=== PATIENT | male | born 1960 | race Caucasian/White ===

== ENCOUNTER 2020-10-02 23:41 | Observation (INO) ==
[2020-10-03 03:30] LABS: Basophils # 0.1 K/mcL (0.0-0.2); Basophils % 0.6 %; Eosinophils # 0.1 K/mcL (0.0-0.6); Eosinophils % 0.8 %; Hematocrit 36.9 % (37.5-50.1); Hemoglobin 11.8 g/dL (12.9-16.9); Immature Granulocytes % 0.4 % (0-4); Lymphocytes # 7.7 K/mcL (0.6-4.6); Mean Corpuscular Hemoglobin 30.3 pg (28.0-33.3); Mean Corpuscular Volume 94.6 fL (83.0-100.0); Mean Platelet Volume 10.5 fL (9.4-12.4); Monocytes # 0.6 K/mcL (0.0-1.3); Monocytes % 4.9 %; Neutrophils # 3.7 K/mcL (1.6-8.9); Platelet Count 164 K/mcL (140-400); Red Cell Distribution Width 13.6 % (11.5-14.5); Segmented Neutrophils % 30.3 %; White Blood Count 12.2 K/mcL (4.3-11.1)
[2020-10-03 03:49] LABS: BUN/Creatinine Ratio 23 (6-26); Blood Urea Nitrogen 58 mg/dL (6-20); Calcium 9.2 mg/dL (8.6-10.3); Carbon Dioxide 26 mEq/L (23-29); Chloride 106 mEq/L (98-107); Ethanol < 10 mg/dL (Less than 10); Glucose 234 mg/dL (70-105); Osmolality,Calculated 312 (280-300); Sodium 139 mEq/L (136-145); eGFR For African Americans 32 (> 60); eGFR For Non-African Americans 27 (> 60)
[2020-10-03 04:04] LABS: Platelet Estimate Normal (Normal); Reactive Lymphocytes Present (Not Present)
[2020-10-03 04:05] LABS: Anisocytosis 1+ (Not Present)
[2020-10-03 05:17] LABS: Bilirubin,Urine Negative (Negative); Blood,Urine Negative (Negative); Clarity,Urine Clear (Clear); Color,Urine Colorless (Yellow); Glucose,Urine (UA) 500 mg/dL (Normal); Ketones,Urine Negative (Negative); Leukocyte Esterase,Urine Negative (Negative); Nitrite,Urine Negative (Negative); PH,Urine 6.5 pH Units (5.0-8.0); Protein,Urine 200 mg/dL (Neg-Trace); RBC,Urine 0-3 per hpf (0-3); Specific Gravity,Urine 1.014 (1.010-1.025); Squamous Epithelial Cell,Urine Few per hpf (None-Few); Urobilinogen,Urine Normal (Normal); WBC,Urine 0-3 per hpf (0-3)
[2020-10-03 05:28] LABS: Amphetamine Screen,Urine Positive ng/mL (Cutoff=1000); Barbiturate Screen,Urine Negative ng/mL (Cutoff=200); Benzodiazepines Screen,Urine Negative ng/mL (Cutoff=200); Cannabinoid Screen,Urine Negative ng/mL (Cutoff = 50); Cocaine Screen,Urine Negative ng/mL (Cutoff= 300); Opiate Screen,Urine Negative ng/mL (Cutoff=300); Phencyclidine Screen,Urine Negative ng/mL (Cutoff=25)
[2020-10-03] MEDS ORDERED: 0.9 % Sodium Chloride 1,000 ML IVC ONE (09:40)
[2020-10-03] MEDS ORDERED: *HR* HYDROcodone/Acet 5/325 mg TABLET PO PRN (10:19)
[2020-10-03] MEDS ORDERED: Naloxone 0.4 MG/ML INJ IVP PRN (10:19)
[2020-10-03] MEDS ORDERED: Ondansetron 4 MG/2 ML VIAL IVP PRN (10:19)
[2020-10-03] MEDS ORDERED: Acetaminophen 325 MG TABLET PO PRN (10:19)
[2020-10-03] MEDS ORDERED: D5% in Water 1,000 ML IVC PRN (10:20)
[2020-10-03] MEDS ORDERED: *HR* Dextrose 50 % in Water (Vial) 50 ML VIAL IVP PRN (10:20)
[2020-10-03] MEDS ORDERED: Dextrose Gel 15 GM/37.5 ML TUBE PO PRN ×2 (10:20)
[2020-10-03] MEDS ORDERED: *HR* OxyCODONE/APAP 10/325 TABLET PO PRN (11:12)
[2020-10-03] MEDS: Insulin LISPRO 300 UNITS/3 ML VIAL SUBQ SCH ×2 (11:25→16:16)
[2020-10-03] MEDS: Ringers Solution, Lactated 1,000 ML IVC SCH (12:07)
[2020-10-03] MEDS: Nicotine 21 MG PATCH.TD24 TD SCH (13:07)
[2020-10-03] MEDS: *HR* OxyCODONE/APAP 10/325 TABLET PO PRN (20:00)
[2020-10-03] MEDS ORDERED: Insulin DETEMIR 100 UNIT/ML X5UNITS SUBQ SCH (21:00)
[2020-10-04] MEDS: Ringers Solution, Lactated 1,000 ML IVC SCH (01:11)
[2020-10-04] MEDS: *HR* OxyCODONE/APAP 10/325 TABLET PO PRN ×2 (01:49→09:12)
[2020-10-04] MEDS: Insulin LISPRO 300 UNITS/3 ML VIAL SUBQ SCH ×2 (07:25→11:57)
[2020-10-04 08:20] LABS: Hematocrit 36.6 % (37.5-50.1); Hemoglobin 11.6 g/dL (12.9-16.9); Mean Corpuscular HGB Conc 31.7 g/dL (31.6-35.5); Mean Corpuscular Hemoglobin 30.9 pg (28.0-33.3); Mean Corpuscular Volume 97.3 fL (83.0-100.0); Mean Platelet Volume 10.6 fL (9.4-12.4); Platelet Count 167 K/mcL (140-400); Red Blood Count 3.76 M/mcL (4.19-5.50); Red Cell Distribution Width 13.4 % (11.5-14.5); White Blood Count 12.6 K/mcL (4.3-11.1)
[2020-10-04 08:32] LABS: Calcium 8.9 mg/dL (8.6-10.3); Potassium 4.3 mEq/L (3.5-5.1); Uric Acid 8.6 mg/dL (2.3-7.6)
[2020-10-04] MEDS: Nicotine 21 MG PATCH.TD24 TD SCH (08:50)
[2020-10-04 09:02] LABS: Hepatitis B Surface Antigen Nonreactive (Nonreactive)
[2020-10-04 09:06] LABS: Basophils # 0.3 K/mcL (0.0-0.2); Eosinophils # 0.3 K/mcL (0.0-0.6); Lymphocytes # 9.1 K/mcL (0.6-4.6); Monocytes # 0.3 K/mcL (0.0-1.3); Neutrophils # 2.8 K/mcL (1.6-8.9); Platelet Estimate Normal (Normal); Reactive Lymphocytes Present (Not Present)
[2020-10-04 09:31] LABS: Hepatitis C Virus Antibody Nonreactive (Nonreactive)
[2020-10-04 09:32] LABS: Hepatitis B Core IgM Nonreactive (Nonreactive)
[2020-10-04 09:33] LABS: Hepatitis A Antibody IgM Nonreactive (Nonreactive)
[2020-10-04 10:48] VITALS: BP 117/78
[2020-10-04 12:39] LABS: Protein/Creatinine Ratio,Urine 5.23 mg/mg (0.00-0.20); Sodium, Urine 94.2 mEq/L
[2020-10-04] MEDS ORDERED: Famotidine 20 MG TABLET PO SCH (12:45)
[2020-10-04] MEDS ORDERED: Aspirin Enteric Coated 81 MG Tablet PO SCH (12:45)
[2020-10-04] MEDS ORDERED: Insulin DETEMIR 100 UNIT/ML X5UNITS SUBQ SCH (12:45)
[2020-10-04] MEDS ORDERED: hydroCHLOROthiazide 25 MG TABLET PO SCH (12:45)
[2020-10-04] MEDS ORDERED: NIFEdipine XL (24 HR) 60 MG TAB.ER.24 PO SCH (12:45)
[2020-10-04] MEDS ORDERED: Furosemide 20 MG TABLET PO SCH (12:45)
[2020-10-04] MEDS ORDERED: carvediloL 6.25 MG TABLET PO SCH (12:45)
== END 2020-10-04 14:54 | disposition home or self-care (01) ==
LOC: 3BNU 23:41 → EMEROOARM 23:41 → SUATTDRO 10-03 10:12 → 3BNU 10-03 10:42
PROVIDERS: ADMIT Internal Medicine; ATTEND Internal Medicine

== ENCOUNTER 2020-11-01 01:10 | Observation (INO) ==
[2020-11-01] MEDS ORDERED: Aspirin 81 MG TAB.CHEW PO ONE (01:49)
[2020-11-01] MEDS ORDERED: Morphine Sulfate 2 MG/ML SYRINGE IVP STA (01:57)
[2020-11-01 02:11] LABS: Basophils # 0.1 K/mcL (0.0-0.2); Basophils % 0.6 %; Eosinophils # 0.1 K/mcL (0.0-0.6); Eosinophils % 0.5 %; Hematocrit 41.4 % (37.5-50.1); Hemoglobin 13.4 g/dL (12.9-16.9); Immature Granulocytes % 0.3 % (0-4); Lymphocytes % 45.5 %; Mean Corpuscular HGB Conc 32.4 g/dL (31.6-35.5); Mean Corpuscular Volume 92.8 fL (83.0-100.0); Mean Platelet Volume 10.4 fL (9.4-12.4); Monocytes # 0.6 K/mcL (0.0-1.3); Monocytes % 5.4 %; Neutrophils # 5.5 K/mcL (1.6-8.9); Platelet Count 173 K/mcL (140-400); Red Blood Count 4.46 M/mcL (4.19-5.50); Red Cell Distribution Width 13.5 % (11.5-14.5); Segmented Neutrophils % 47.7 %; White Blood Count 11.5 K/mcL (4.3-11.1)
[2020-11-01 02:13] LABS: Lymphocytes # 5.2 K/mcL (0.6-4.6)
[2020-11-01 02:19] LABS: INR 1.1; Prothrombin Time 12.2 Seconds (9.4-12.1)
[2020-11-01 02:22] LABS: Activated Partial Thrombo Time 28.3 Seconds (26.0-36.0)
[2020-11-01] MEDS ORDERED: *HR* Labetalol 20 MG/4 ML SYRINGE IVP ONE (02:36)
[2020-11-01 02:37] LABS: Platelet Estimate Normal (Normal); Poikilocytosis 1+ (Not Present); Reactive Lymphocytes Present (Not Present)
[2020-11-01] MEDS ORDERED: Isovue-370 500 ML BOTTLE IVP ONE (02:37)
[2020-11-01] MEDS ORDERED: Furosemide 40 MG/4 ML VIAL IVP ONE (03:00)
[2020-11-01 03:13] LABS: Bilirubin,Direct 0.1 mg/dL (0.0-0.2); Potassium 4.6 mEq/L (3.5-5.1); Troponin I 0.17 ng/mL (< 0.04)
[2020-11-01] MEDS ORDERED: *HR* Heparin 5,000 UNIT/ML VIAL IVP ONE (03:13)
[2020-11-01] MEDS ORDERED: *HR* Heparin 5,000 UNIT/ML VIAL IVP PRN (03:13)
[2020-11-01 03:14] LABS: Albumin 4.1 g/dL (3.5-5.7); Albumin/Globulin Ratio 1.3 (1.1-2.2); Bilirubin,Indirect 0.5 mg/dL (0.0-1.0); Bilirubin,Total 0.6 mg/dL (0.3-1.0); Calcium 9.2 mg/dL (8.6-10.3); Globulin 3.2 g/dL (2.4-3.5); Total Protein 7.3 g/dL (6.4-8.9)
[2020-11-01] MEDS ORDERED: *HR* HYDROmorphone (PF) 1 MG/ML SYRINGE IVP ONE (03:33)
[2020-11-01 04:33] LABS: Bilirubin,Urine Negative (Negative); Blood,Urine Trace (Negative); Clarity,Urine Clear (Clear); Color,Urine Light-Yellow (Yellow); Glucose,Urine (UA) >=1000 mg/dL (Normal); Ketones,Urine Negative (Negative); Leukocyte Esterase,Urine Negative (Negative); Mucus,Urine Few per lpf (None-Few); Nitrite,Urine Negative (Negative); PH,Urine 6.5 pH Units (5.0-8.0); Protein,Urine >=300 mg/dL (Neg-Trace); Specific Gravity,Urine 1.014 (1.010-1.025); Squamous Epithelial Cell,Urine Few per hpf (None-Few); Urobilinogen,Urine Normal (Normal)
[2020-11-01] MEDS: Heparin 25,000UNIT/250ML 1/2NS 25,000 UNIT/250 ML IV.SOLN IVC SCH (04:33)
[2020-11-01] MEDS ORDERED: Naloxone 0.4 MG/ML INJ IVP PRN (07:40)
[2020-11-01] MEDS ORDERED: Morphine Sulfate 2 MG/ML SYRINGE IVP ONE (08:46)
[2020-11-01 10:32] LABS: Estimated Average Glucose 206 mg/dl; Hemoglobin A1C 8.8 %
[2020-11-01] MEDS: Nicotine 21 MG PATCH.TD24 TD SCH (10:59)
[2020-11-01] MEDS ORDERED: amLODIPine 5 MG TABLET PO SCH (12:00)
[2020-11-01] MEDS ORDERED: Perflutren Lipid Microsphere 1.3 ML in 0.9 % Sodium Chloride 8.7 ML IVP PRN (12:18)
[2020-11-01] MEDS: Morphine Sulfate 2 MG/ML SYRINGE IVP PRN ×3 (12:41→22:29)
[2020-11-01] MEDS: NIFEdipine XL (24 HR) 60 MG TAB.ER.24 PO SCH ×2 (12:42→20:54)
[2020-11-01] MEDS: Isosorbide MONOnitrate (24 HR) 30 MG TAB.ER.24H PO SCH (12:42)
[2020-11-01] MEDS: Ampicillin/Sulbactam 1,500 MG in 0.9 % Sodium Chloride Mini Bag 100 ML IVPB SCH (12:46)
[2020-11-01] MEDS: carvediloL 6.25 MG TABLET PO SCH ×2 (12:46→17:10)
[2020-11-01] MEDS ORDERED: D5% in Water 1,000 ML IVC PRN (15:16)
[2020-11-01] MEDS ORDERED: *HR* Dextrose 50 % in Water (Vial) 50 ML VIAL IVP PRN (15:16)
[2020-11-01] MEDS ORDERED: Dextrose Gel 15 GM/37.5 ML TUBE PO PRN ×2 (15:16)
[2020-11-01] MEDS ORDERED: carvediloL 6.25 MG TABLET PO SCH (17:00)
[2020-11-01] MEDS: Insulin LISPRO 300 UNITS/3 ML VIAL SUBQ SCH (17:11)
[2020-11-01] MEDS: *HR* Heparin 5,000 UNIT/ML VIAL IVP PRN (18:59)
[2020-11-01] MEDS: Sucralfate 1 GM TABLET PO SCH (20:54)
[2020-11-01] MEDS: Colchicine 0.6 MG TABLET PO SCH (20:55)
[2020-11-01] MEDS ORDERED: Insulin LISPRO 300 UNITS/3 ML VIAL SUBQ SCH (21:00)
[2020-11-02] MEDS: Ampicillin/Sulbactam 1,500 MG in 0.9 % Sodium Chloride Mini Bag 100 ML IVPB SCH ×2 (00:27→11:34)
[2020-11-02 01:32] LABS: Basophils # 0.1 K/mcL (0.0-0.2); Basophils % 0.5 %; Eosinophils # 0.1 K/mcL (0.0-0.6); Eosinophils % 0.7 %; Hematocrit 37.4 % (37.5-50.1); Hemoglobin 11.9 g/dL (12.9-16.9); Immature Granulocytes % 0.5 % (0-4); Lymphocytes # 4.2 K/mcL (0.6-4.6); Lymphocytes % 39.7 %; Mean Corpuscular HGB Conc 31.8 g/dL (31.6-35.5); Mean Corpuscular Hemoglobin 29.4 pg (28.0-33.3); Mean Corpuscular Volume 92.3 fL (83.0-100.0); Mean Platelet Volume 10.2 fL (9.4-12.4); Monocytes # 0.4 K/mcL (0.0-1.3); Monocytes % 3.8 %; Neutrophils # 5.8 K/mcL (1.6-8.9); Platelet Count 128 K/mcL (140-400); Red Blood Count 4.05 M/mcL (4.19-5.50); Red Cell Distribution Width 13.2 % (11.5-14.5); Segmented Neutrophils % 54.8 %; White Blood Count 10.6 K/mcL (4.3-11.1)
[2020-11-02 01:52] LABS: Calcium 8.5 mg/dL (8.6-10.3); Potassium 4.3 mEq/L (3.5-5.1)
[2020-11-02 01:54] LABS: Platelet Estimate Normal (Normal)
[2020-11-02] MEDS: Morphine Sulfate 2 MG/ML SYRINGE IVP PRN (03:29)
[2020-11-02] MEDS ORDERED: Ondansetron 4 MG/2 ML VIAL IVP ONE (06:33)
[2020-11-02] MEDS ORDERED: Tiotropium 10 INH DOSE IH ONE (07:16)
[2020-11-02] MEDS: Insulin LISPRO 300 UNITS/3 ML VIAL SUBQ SCH ×2 (07:43→11:32)
[2020-11-02] MEDS ORDERED: Furosemide 20 MG TABLET PO SCH (09:00)
[2020-11-02] MEDS ORDERED: Isosorbide MONOnitrate (24 HR) 30 MG TAB.ER.24H PO SCH (09:00)
[2020-11-02] MEDS ORDERED: Aspirin Enteric Coated 81 MG Tablet PO SCH (09:00)
[2020-11-02] MEDS ORDERED: Pantoprazole 40 MG VIAL IVP SCH (09:00)
[2020-11-02] MEDS ORDERED: Morphine Sulfate 2 MG/ML SYRINGE IVP ONE (09:23)
[2020-11-02] MEDS: Isosorbide MONOnitrate (24 HR) 30 MG TAB.ER.24H PO SCH (09:32)
[2020-11-02] MEDS: carvediloL 6.25 MG TABLET PO SCH ×2 (09:32→17:44)
[2020-11-02] MEDS: Nicotine 21 MG PATCH.TD24 TD SCH (09:32)
[2020-11-02] MEDS: NIFEdipine XL (24 HR) 60 MG TAB.ER.24 PO SCH (09:32)
[2020-11-02] MEDS: Sucralfate 1 GM TABLET PO SCH ×3 (09:32→17:44)
[2020-11-02] MEDS: Colchicine 0.6 MG TABLET PO SCH (09:33)
[2020-11-02] MEDS ORDERED: Tiotropium 10 INH DOSE IH SCH (10:00)
[2020-11-02] MEDS: Heparin 25,000UNIT/250ML 1/2NS 25,000 UNIT/250 ML IV.SOLN IVC SCH (10:54)
[2020-11-02] MEDS: *HR* Heparin 5,000 UNIT/ML VIAL IVP PRN (12:54)
[2020-11-02] MEDS ORDERED: Ranolazine 500 MG TAB.ER.12H PO SCH (14:45)
[2020-11-02 16:22] VITALS: BP 110/67
[2020-11-02] MEDS ORDERED: Famotidine 20 MG TABLET PO SCH (17:00)
== END 2020-11-02 18:40 | disposition home or self-care (01) ==
LOC: EMEROOARM 01:10 → 2NNU 01:10 → SUATTDRO 05:55 → 2NNU 06:42
PROVIDERS: ADMIT Family Medicine; ATTEND Family Medicine

== ENCOUNTER 2020-11-03 01:49 | Observation (INO) ==
[2020-11-03] MEDS ORDERED: Aspirin 325 MG TABLET PO ONE (02:06)
[2020-11-03] MEDS ORDERED: *HR* FentaNYL (PF) 100 MCG/2 ML VIAL IVP ONE ×2 (02:07→03:38)
[2020-11-03 03:07] LABS: Basophils # 0.1 K/mcL (0.0-0.2); Basophils % 0.8 %; Eosinophils # 0.1 K/mcL (0.0-0.6); Eosinophils % 0.8 %; Hematocrit 35.5 % (37.5-50.1); Immature Granulocytes % 0.4 % (0-4); Lymphocytes # 5.1 K/mcL (0.6-4.6); Lymphocytes % 47.6 %; Mean Corpuscular Hemoglobin 29.3 pg (28.0-33.3); Mean Corpuscular Volume 94.4 fL (83.0-100.0); Mean Platelet Volume 10.6 fL (9.4-12.4); Monocytes # 0.5 K/mcL (0.0-1.3); Monocytes % 4.6 %; Neutrophils # 4.9 K/mcL (1.6-8.9); Platelet Count 144 K/mcL (140-400); Red Blood Count 3.76 M/mcL (4.19-5.50); Red Cell Distribution Width 13.5 % (11.5-14.5); Segmented Neutrophils % 45.8 %; White Blood Count 10.6 K/mcL (4.3-11.1)
[2020-11-03 03:14] LABS: Prothrombin Time 11.9 Seconds (9.4-12.1)
[2020-11-03 03:30] LABS: Platelet Estimate Normal (Normal); Reactive Lymphocytes Present (Not Present)
[2020-11-03 03:42] LABS: Calcium 8.5 mg/dL (8.6-10.3); Potassium 4.6 mEq/L (3.5-5.1); Troponin I 0.07 ng/mL (< 0.04)
[2020-11-03] MEDS ORDERED: Nitroglycerin 0.4 MG TAB.SUBL SL PRN (05:55)
[2020-11-03] MEDS ORDERED: Naloxone 0.4 MG/ML INJ IVP PRN (06:04)
[2020-11-03] MEDS ORDERED: Ondansetron 4 MG/2 ML VIAL IVP PRN (06:04)
[2020-11-03] MEDS: Famotidine 20 MG TABLET PO SCH (07:33)
[2020-11-03] MEDS: Morphine Sulfate 2 MG/ML SYRINGE IVP PRN ×3 (07:33→15:46)
[2020-11-03] MEDS: NIFEdipine XL (24 HR) 60 MG TAB.ER.24 PO SCH (21:03)
[2020-11-03] MEDS: Ranolazine 500 MG TAB.ER.12H PO SCH (21:03)
[2020-11-04] MEDS ORDERED: Isosorbide MONOnitrate (24 HR) 30 MG TAB.ER.24H PO SCH (09:00)
[2020-11-04] MEDS ORDERED: Aspirin Enteric Coated 81 MG Tablet PO SCH (09:00)
[2020-11-04] MEDS ORDERED: Furosemide 20 MG TABLET PO SCH (09:00)
[2020-11-04] MEDS: Famotidine 20 MG TABLET PO SCH (09:52)
[2020-11-04] MEDS: NIFEdipine XL (24 HR) 60 MG TAB.ER.24 PO SCH ×2 (09:54→21:06)
[2020-11-04] MEDS: Ranolazine 500 MG TAB.ER.12H PO SCH ×2 (09:54→21:07)
[2020-11-04 10:32] LABS: Bilirubin,Urine Negative (Negative); Blood,Urine Negative (Negative); Clarity,Urine Clear (Clear); Color,Urine Colorless (Yellow); Glucose,Urine (UA) Normal (Normal); Ketones,Urine Negative (Negative); Leukocyte Esterase,Urine Negative (Negative); Mucus,Urine Few per lpf (None-Few); Nitrite,Urine Negative (Negative); Protein,Urine 100 mg/dL (Neg-Trace); RBC,Urine 0-3 per hpf (0-3); Specific Gravity,Urine 1.012 (1.010-1.025); Squamous Epithelial Cell,Urine Few per hpf (None-Few); Urobilinogen,Urine Normal (Normal); WBC,Urine 0-3 per hpf (0-3)
[2020-11-04 10:53] LABS: Sodium, Urine 78.9 mEq/L
[2020-11-04 11:05] LABS: Prothrombin Time 11.2 Seconds (9.4-12.1)
[2020-11-04 11:07] LABS: Activated Partial Thrombo Time 22.6 Seconds (26.0-36.0)
[2020-11-04 11:17] LABS: Calcium 8.8 mg/dL (8.6-10.3); Magnesium 1.6 mg/dL (1.6-2.6); Potassium 4.7 mEq/L (3.5-5.1)
[2020-11-04 12:02] LABS: Hematocrit 38.2 % (37.5-50.1); Hemoglobin 12.2 g/dL (12.9-16.9); Immature Platelets 4.5 % (1.1-6.1); Mean Corpuscular HGB Conc 31.9 g/dL (31.6-35.5); Mean Corpuscular Volume 94.1 fL (83.0-100.0); Mean Platelet Volume 11.4 fL (9.4-12.4); Red Blood Count 4.06 M/mcL (4.19-5.50); Red Cell Distribution Width 13.3 % (11.5-14.5); White Blood Count 10.3 K/mcL (4.3-11.1)
[2020-11-04 18:15] VITALS: BP 120/76
== END 2020-11-04 22:11 | disposition home or self-care (01) ==
LOC: EMEROOARM 01:49 → 3ANU 01:49 → SUATTDRO 06:00 → 3ANU 06:48
PROVIDERS: ADMIT Student in an Organized Health Care Education/Training Program; ATTEND Student in an Organized Health Care Education/Training Program

== ENCOUNTER 2020-11-28 22:28 | Observation (INO) ==
[2020-11-28] MEDS ORDERED: Aspirin 81 MG TAB.CHEW ONE (22:49)
[2020-11-28] MEDS ORDERED: *HR* Heparin 5,000 UNIT/ML VIAL ONE (22:49)
[2020-11-28] MEDS ORDERED: 0.9 % Sodium Chloride 1,000 ML ONE (22:49)
[2020-11-28] MEDS ORDERED: Aspirin 81 MG TAB.CHEW PO ONE (22:53)
[2020-11-28] MEDS ORDERED: *HR* Heparin 5,000 UNIT/ML VIAL IVP ONE (22:54)
[2020-11-28] MEDS ORDERED: *HR* FentaNYL (PF) 100 MCG/2 ML VIAL IVP ONE (22:56)
[2020-11-28 23:02] LABS: Basophils # 0.1 K/mcL (0.0-0.2); Basophils % 0.7 %; Eosinophils # 0.1 K/mcL (0.0-0.6); Eosinophils % 0.8 %; Hematocrit 40.2 % (37.5-50.1); Hemoglobin 12.8 g/dL (12.9-16.9); Immature Granulocytes % 0.9 % (0-4); Lymphocytes % 48.8 %; Mean Corpuscular HGB Conc 31.8 g/dL (31.6-35.5); Mean Corpuscular Hemoglobin 28.8 pg (28.0-33.3); Mean Corpuscular Volume 90.5 fL (83.0-100.0); Mean Platelet Volume 9.7 fL (9.4-12.4); Monocytes # 0.7 K/mcL (0.0-1.3); Monocytes % 5.4 %; Platelet Count 193 K/mcL (140-400); Red Blood Count 4.44 M/mcL (4.19-5.50); Red Cell Distribution Width 13.5 % (11.5-14.5); Segmented Neutrophils % 43.4 %; White Blood Count 12.3 K/mcL (4.3-11.1)
[2020-11-28] MEDS ORDERED: 0.9 % Sodium Chloride 2,000 ML ONE (23:10)
[2020-11-28] MEDS ORDERED: *HR* Heparin 10,000 UNIT/10 ML VIAL ONE (23:11)
[2020-11-28] MEDS ORDERED: ISOVUE-370 200 ML INFUS..BTL ONE ×2 (23:11→23:22)
[2020-11-28] MEDS ORDERED: Heparin 1,000 UNITS/500 mL 500 ML ONE ×2 (23:11→23:22)
[2020-11-28] MEDS ORDERED: Nitroglycerin 1,000 MCG/5 ML VIAL IV ONE (23:11)
[2020-11-28 23:12] LABS: Neutrophils # 5.3 K/mcL (1.6-8.9)
[2020-11-28 23:14] LABS: Heparin anti-factor XA UFH 0.07 IU/mL (0.30-0.70); INR 1.1; Prothrombin Time 12.7 Seconds (9.4-12.1)
[2020-11-28 23:16] LABS: Activated Partial Thrombo Time 30.7 Seconds (26.0-36.0)
[2020-11-28 23:19] LABS: BUN/Creatinine Ratio 12 (6-26); Blood Urea Nitrogen 30 mg/dL (8-23); Calcium 9.2 mg/dL (8.6-10.3); Carbon Dioxide 27 mEq/L (23-29); Chloride 101 mEq/L (98-107); Glucose 200 mg/dL (70-105); Magnesium 1.7 mg/dL (1.6-2.6); Osmolality,Calculated 292 (280-300); Potassium 4.6 mEq/L (3.5-5.1); Sodium 135 mEq/L (136-145); eGFR For African Americans 32 (> 60); eGFR For Non-African Americans 27 (> 60)
[2020-11-28 23:20] LABS: Troponin I < 0.03 ng/mL (< 0.04)
[2020-11-28] MEDS ORDERED: *HR* Labetalol 20 MG/4 ML SYRINGE IVP ONE (23:32)
[2020-11-28 23:33] LABS: Platelet Estimate Normal (Normal); Reactive Lymphocytes Present (Not Present)
[2020-11-29] MEDS ORDERED: Nitroglycerin 1 INCH/GM PACKET TP ONE (00:20)
[2020-11-29] MEDS ORDERED: *HR* Heparin 5,000 UNIT/ML VIAL IVP PRN ×2 (02:02)
[2020-11-29] MEDS ORDERED: Nitroglycerin 0.4 MG TAB.SUBL SL PRN (02:22)
[2020-11-29] MEDS ORDERED: *HR* Metoprolol 5 MG/5 ML VIAL IVP PRN (02:23)
[2020-11-29] MEDS ORDERED: Ondansetron 4 MG/2 ML VIAL IVP PRN (02:25)
[2020-11-29 02:33] LABS: Amphetamine Screen,Urine Positive ng/mL (Cutoff=1000); Barbiturate Screen,Urine Negative ng/mL (Cutoff=200); Benzodiazepines Screen,Urine Negative ng/mL (Cutoff=200); Cannabinoid Screen,Urine Negative ng/mL (Cutoff = 50); Cocaine Screen,Urine Negative ng/mL (Cutoff= 300); Opiate Screen,Urine Negative ng/mL (Cutoff=300); Phencyclidine Screen,Urine Negative ng/mL (Cutoff=25)
[2020-11-29] MEDS: Heparin 25,000UNIT/250ML 1/2NS 25,000 UNIT/250 ML IV.SOLN IVC SCH (02:47)
[2020-11-29] MEDS ORDERED: D5% in Water 1,000 ML IVC PRN (02:55)
[2020-11-29] MEDS ORDERED: *HR* Dextrose 50 % in Water (Vial) 50 ML VIAL IVP PRN (02:55)
[2020-11-29] MEDS: Morphine Sulfate 2 MG/ML SYRINGE IVP PRN ×5 (02:55→17:11)
[2020-11-29] MEDS ORDERED: Dextrose Gel 15 GM/37.5 ML TUBE PO PRN ×2 (02:55)
[2020-11-29] MEDS: Insulin LISPRO 300 UNITS/3 ML VIAL SUBQ SCH ×3 (05:50→17:10)
[2020-11-29] MEDS: Aspirin 81 MG TAB.CHEW PO SCH (07:44)
[2020-11-29] MEDS ORDERED: Famotidine 20 MG TABLET PO PRN (07:54)
[2020-11-29] MEDS: Tiotropium 10 INH DOSE IH SCH (10:01)
[2020-11-29] MEDS: Ranolazine 500 MG TAB.ER.12H PO SCH ×2 (10:05→21:44)
[2020-11-29] MEDS: Isosorbide MONOnitrate (24 HR) 60 MG TAB.ER.24H PO SCH (10:05)
[2020-11-29] MEDS: NIFEdipine XL (24 HR) 60 MG TAB.ER.24 PO SCH (10:05)
[2020-11-29] MEDS: Insulin DETEMIR 100 UNIT/ML X5UNITS SUBQ SCH (10:06)
[2020-11-29] MEDS ORDERED: *HR* LORazepam 1 MG TABLET PO PRN (21:48)
[2020-11-30] MEDS: Insulin LISPRO 300 UNITS/3 ML VIAL SUBQ SCH ×5 (00:17→22:08)
[2020-11-30] MEDS: Heparin 25,000UNIT/250ML 1/2NS 25,000 UNIT/250 ML IV.SOLN IVC SCH (02:19)
[2020-11-30] MEDS: Tiotropium 10 INH DOSE IH SCH (07:45)
[2020-11-30] MEDS: Aspirin 81 MG TAB.CHEW PO SCH (09:10)
[2020-11-30] MEDS: NIFEdipine XL (24 HR) 60 MG TAB.ER.24 PO SCH (09:11)
[2020-11-30] MEDS: Isosorbide MONOnitrate (24 HR) 60 MG TAB.ER.24H PO SCH (09:11)
[2020-11-30] MEDS: Ranolazine 500 MG TAB.ER.12H PO SCH ×2 (09:11→22:08)
[2020-11-30] MEDS: Insulin DETEMIR 100 UNIT/ML X5UNITS SUBQ SCH (09:15)
[2020-11-30 18:41] VITALS: BP 136/111
== END 2020-11-30 23:20 | disposition home or self-care (01) ==
LOC: EMEROOARM 22:28 → 2NENU 22:28 → SUATTDRO 11-29 02:05 → 2NENU 11-29 02:35 → CDU 11-30 17:38
PROVIDERS: ADMIT Family Medicine; ATTEND Internal Medicine

== ENCOUNTER 2020-12-07 20:32 | Observation (INO) ==
[2020-12-07] MEDS ORDERED: Morphine Sulfate 2 MG/ML SYRINGE IVP ONE ×2 (21:18→23:59)
[2020-12-07] MEDS ORDERED: Ondansetron 4 MG/2 ML VIAL IVP ONE (21:18)
[2020-12-07 21:38] LABS: Basophils # 0.1 K/mcL (0.0-0.2); Basophils % 0.7 %; Eosinophils # 0.1 K/mcL (0.0-0.6); Eosinophils % 0.6 %; Hemoglobin 12.1 g/dL (12.9-16.9); Immature Granulocytes % 0.9 % (0-4); Lymphocytes # 6.1 K/mcL (0.6-4.6); Lymphocytes % 49.8 %; Mean Corpuscular Hemoglobin 28.3 pg (28.0-33.3); Mean Corpuscular Volume 91.1 fL (83.0-100.0); Mean Platelet Volume 10.2 fL (9.4-12.4); Monocytes # 0.5 K/mcL (0.0-1.3); Monocytes % 4.2 %; Neutrophils # 5.3 K/mcL (1.6-8.9); Platelet Count 212 K/mcL (140-400); Red Blood Count 4.28 M/mcL (4.19-5.50); Red Cell Distribution Width 14.2 % (11.5-14.5); Segmented Neutrophils % 43.8 %; White Blood Count 12.2 K/mcL (4.3-11.1)
[2020-12-07 21:49] LABS: INR 1.1; Prothrombin Time 12.5 Seconds (9.4-12.1)
[2020-12-07 21:52] LABS: Activated Partial Thrombo Time 28.6 Seconds (26.0-36.0)
[2020-12-07 21:59] LABS: BUN/Creatinine Ratio 12 (6-26); Blood Urea Nitrogen 32 mg/dL (8-23); Carbon Dioxide 26 mEq/L (23-29); Chloride 100 mEq/L (98-107); Glucose 223 mg/dL (70-105); Osmolality,Calculated 298 (280-300); Sodium 137 mEq/L (136-145); Troponin I < 0.03 ng/mL (< 0.04); eGFR For African Americans 31 (> 60); eGFR For Non-African Americans 25 (> 60)
[2020-12-07] MEDS ORDERED: *HR* Heparin 5,000 UNIT/ML VIAL IVP PRN ×2 (23:08)
[2020-12-07] MEDS ORDERED: *HR* Heparin 5,000 UNIT/ML VIAL IVP ONE (23:08)
[2020-12-07] MEDS ORDERED: Heparin 25,000UNIT/250ML 1/2NS 25,000 UNIT/250 ML IV.SOLN IVC SCH (23:15)
[2020-12-08 00:22] LABS: Hematocrit 35.2 % (37.5-50.1); Hemoglobin 11.4 g/dL (12.9-16.9); Mean Corpuscular HGB Conc 32.4 g/dL (31.6-35.5); Mean Corpuscular Hemoglobin 29.4 pg (28.0-33.3); Mean Corpuscular Volume 90.7 fL (83.0-100.0); Mean Platelet Volume 9.9 fL (9.4-12.4); Platelet Count 193 K/mcL (140-400); Red Blood Count 3.88 M/mcL (4.19-5.50); Red Cell Distribution Width 14.2 % (11.5-14.5); White Blood Count 11.7 K/mcL (4.3-11.1)
[2020-12-08 00:30] LABS: Heparin anti-factor XA UFH 0.04 IU/mL (0.30-0.70)
[2020-12-08] MEDS ORDERED: Naloxone 0.4 MG/ML INJ IVP PRN (01:49)
[2020-12-08] MEDS ORDERED: Ondansetron 4 MG/2 ML VIAL IVP PRN (01:49)
[2020-12-08] MEDS ORDERED: Melatonin 3 MG TABLET PO PRN (01:49)
[2020-12-08] MEDS ORDERED: Acetaminophen 325 MG TABLET PO PRN (01:49)
[2020-12-08] MEDS: Morphine Sulfate 2 MG/ML SYRINGE IVP PRN ×2 (03:51→08:05)
[2020-12-08 03:57] LABS: Alanine Aminotransferase 10 Units/L (7-52); Albumin 3.4 g/dL (3.5-5.7); Albumin/Globulin Ratio 1.4 (1.1-2.2); Alkaline Phosphatase 69 Units/L (34-104); Aspartate Amino Transferase 13 Units/L (13-39); BUN/Creatinine Ratio 13 (6-26); Bilirubin,Total 0.5 mg/dL (0.3-1.0); Blood Urea Nitrogen 32 mg/dL (8-23); Calcium 8.6 mg/dL (8.6-10.3); Carbon Dioxide 27 mEq/L (23-29); Chloride 103 mEq/L (98-107); Globulin 2.4 g/dL (2.4-3.5); Glucose 177 mg/dL (70-105); Magnesium 1.6 mg/dL (1.6-2.6); Osmolality,Calculated 297 (280-300); Phosphorous 4.7 mg/dL (2.7-4.5); Potassium 4.1 mEq/L (3.5-5.1); Sodium 138 mEq/L (136-145); Total Protein 5.8 g/dL (6.4-8.9); eGFR For African Americans 32 (> 60); eGFR For Non-African Americans 27 (> 60)
[2020-12-08 03:58] LABS: Troponin I < 0.03 ng/mL (< 0.04)
[2020-12-08] MEDS ORDERED: Dextrose Gel 15 GM/37.5 ML TUBE PO PRN ×2 (08:32)
[2020-12-08] MEDS ORDERED: *HR* Dextrose 50 % in Water (Vial) 50 ML VIAL IVP PRN (08:32)
[2020-12-08] MEDS ORDERED: D5% in Water 1,000 ML IVC PRN (08:32)
[2020-12-08] MEDS: Aspirin Enteric Coated 81 MG Tablet PO SCH (10:15)
[2020-12-08] MEDS: Isosorbide MONOnitrate (24 HR) 60 MG TAB.ER.24H PO SCH (10:15)
[2020-12-08] MEDS: Insulin LISPRO 300 UNITS/3 ML VIAL SUBQ SCH ×2 (11:38→16:26)
[2020-12-08] MEDS ORDERED: Famotidine 20 MG TABLET PO PRN ×2 (14:49→16:15)
[2020-12-08] MEDS: Sucralfate 1 GM TABLET PO SCH ×2 (16:36→20:42)
[2020-12-08] MEDS: carvediloL 6.25 MG TABLET PO SCH (16:36)
[2020-12-08 17:11] LABS: Bacteria,Urine Few per hpf (None-Few); Bilirubin,Urine Negative (Negative); Blood,Urine Trace (Negative); Clarity,Urine Clear (Clear); Color,Urine Light-Yellow (Yellow); Glucose,Urine (UA) 150 mg/dL (Normal); Ketones,Urine Negative (Negative); Leukocyte Esterase,Urine Negative (Negative); Mucus,Urine Few per lpf (None-Few); Nitrite,Urine Negative (Negative); Protein,Urine >=300 mg/dL (Neg-Trace); RBC,Urine 0-3 per hpf (0-3); Specific Gravity,Urine 1.017 (1.010-1.025); Squamous Epithelial Cell,Urine Few per hpf (None-Few); Urobilinogen,Urine Normal (Normal)
[2020-12-08 17:22] LABS: Amphetamine Screen,Urine Positive ng/mL (Cutoff=1000); Barbiturate Screen,Urine Negative ng/mL (Cutoff=200); Benzodiazepines Screen,Urine Negative ng/mL (Cutoff=200); Cannabinoid Screen,Urine Negative ng/mL (Cutoff = 50); Cocaine Screen,Urine Negative ng/mL (Cutoff= 300); Opiate Screen,Urine Positive ng/mL (Cutoff=300); Phencyclidine Screen,Urine Negative ng/mL (Cutoff=25)
[2020-12-08] MEDS ORDERED: Insulin DETEMIR 100 UNIT/ML X5UNITS SUBQ SCH (18:00)
[2020-12-08] MEDS: Ranolazine 500 MG TAB.ER.12H PO SCH (20:42)
[2020-12-09] MEDS: Insulin LISPRO 300 UNITS/3 ML VIAL SUBQ SCH ×2 (03:08→08:08)
[2020-12-09 07:03] VITALS: BP 108/70
[2020-12-09] MEDS: Ranolazine 500 MG TAB.ER.12H PO SCH (08:34)
[2020-12-09] MEDS: Sucralfate 1 GM TABLET PO SCH (08:34)
[2020-12-09] MEDS: Aspirin Enteric Coated 81 MG Tablet PO SCH (08:34)
[2020-12-09] MEDS: Isosorbide MONOnitrate (24 HR) 60 MG TAB.ER.24H PO SCH (08:34)
[2020-12-09] MEDS: carvediloL 6.25 MG TABLET PO SCH (08:39)
[2020-12-09] MEDS ORDERED: NIFEdipine XL (24 HR) 60 MG TAB.ER.24 PO SCH (09:00)
[2020-12-09] MEDS ORDERED: hydrALAZINE 25 MG TABLET PO SCH (09:00)
[2020-12-09] MEDS ORDERED: Furosemide 20 MG TABLET PO SCH (09:00)
[2020-12-09] MEDS ORDERED: Colchicine 0.6 MG TABLET PO SCH (09:00)
== END 2020-12-09 09:32 | disposition home or self-care (01) ==
LOC: EMEROOARM 20:32 → 2NENU 20:32
PROVIDERS: ADMIT Family Medicine; ATTEND Family Medicine

== ENCOUNTER 2020-12-20 22:25 | Observation (INO) ==
[2020-12-20] MEDS ORDERED: Aspirin 81 MG TAB.CHEW PO ONE (22:57)
[2020-12-20] MEDS ORDERED: *HR* FentaNYL (PF) 100 MCG/2 ML VIAL IVP ONE (22:58)
[2020-12-20 23:32] LABS: Basophils # 0.1 K/mcL (0.0-0.2); Basophils % 0.5 %; Eosinophils # 0.1 K/mcL (0.0-0.6); Eosinophils % 0.6 %; Hematocrit 36.8 % (37.5-50.1); Hemoglobin 11.5 g/dL (12.9-16.9); Immature Granulocytes % 0.6 % (0-4); Lymphocytes # 7.1 K/mcL (0.6-4.6); Lymphocytes % 42.6 %; Mean Corpuscular HGB Conc 31.3 g/dL (31.6-35.5); Mean Corpuscular Volume 92.9 fL (83.0-100.0); Mean Platelet Volume 10.8 fL (9.4-12.4); Monocytes # 0.7 K/mcL (0.0-1.3); Monocytes % 4.2 %; Neutrophils # 8.6 K/mcL (1.6-8.9); Platelet Count 176 K/mcL (140-400); Red Blood Count 3.96 M/mcL (4.19-5.50); Red Cell Distribution Width 15.8 % (11.5-14.5); Segmented Neutrophils % 51.5 %; White Blood Count 16.7 K/mcL (4.3-11.1)
[2020-12-20 23:52] LABS: Reactive Lymphocytes Present (Not Present); Smudge Cells Present (Not Present)
[2020-12-20 23:54] LABS: BUN/Creatinine Ratio 13 (6-26); Blood Urea Nitrogen 33 mg/dL (8-23); Calcium 8.7 mg/dL (8.6-10.3); Carbon Dioxide 25 mEq/L (23-29); Chloride 106 mEq/L (98-107); Glucose 165 mg/dL (70-105); Osmolality,Calculated 301 (280-300); Potassium 4.2 mEq/L (3.5-5.1); Sodium 140 mEq/L (136-145); Troponin I < 0.03 ng/mL (< 0.04); eGFR For African Americans 30 (> 60); eGFR For Non-African Americans 25 (> 60)
[2020-12-21 00:08] LABS: Heparin anti-factor XA UFH 0.04 IU/mL (0.30-0.70)
[2020-12-21 00:09] LABS: Prothrombin Time 11.7 Seconds (9.4-12.1)
[2020-12-21 00:10] LABS: Activated Partial Thrombo Time 26.3 Seconds (26.0-36.0)
[2020-12-21] MEDS ORDERED: Perflutren Lipid Microsphere 1.3 ML in 0.9 % Sodium Chloride 8.7 ML IVP PRN (03:21)
[2020-12-21] MEDS ORDERED: Nitroglycerin 0.4 MG TAB.SUBL SL PRN (03:22)
[2020-12-21] MEDS ORDERED: Ondansetron 4 MG/2 ML VIAL IVP PRN (03:29)
[2020-12-21] MEDS ORDERED: Acetaminophen 325 MG TABLET PO PRN (03:29)
[2020-12-21] MEDS ORDERED: Naloxone 0.4 MG/ML INJ IVP PRN (03:29)
[2020-12-21] MEDS ORDERED: D5% in Water 1,000 ML IVC PRN (03:30)
[2020-12-21] MEDS ORDERED: Dextrose Gel 15 GM/37.5 ML TUBE PO PRN ×2 (03:30)
[2020-12-21] MEDS ORDERED: *HR* Dextrose 50 % in Water (Vial) 50 ML VIAL IVP PRN (03:30)
[2020-12-21 03:49] LABS: Bacteria,Urine Few per hpf (None-Few); Bilirubin,Urine Negative (Negative); Blood,Urine Negative (Negative); Clarity,Urine Turbid (Clear); Color,Urine Yellow (Yellow); Glucose,Urine (UA) 100 mg/dL (Normal); Hyaline Casts,Urine Few per lpf (None Seen); Ketones,Urine Negative (Negative); Leukocyte Esterase,Urine Small (Negative); Mucus,Urine Few per lpf (None-Few); Nitrite,Urine Negative (Negative); Protein,Urine >=300 mg/dL (Neg-Trace); RBC,Urine 0-3 per hpf (0-3); Specific Gravity,Urine 1.019 (1.010-1.025); Squamous Epithelial Cell,Urine Few per hpf (None-Few); Urobilinogen,Urine Normal (Normal); WBC,Urine 50-100 per hpf (0-3)
[2020-12-21 03:58] LABS: Amphetamine Screen,Urine Positive ng/mL (Cutoff=1000); Barbiturate Screen,Urine Negative ng/mL (Cutoff=200); Benzodiazepines Screen,Urine Negative ng/mL (Cutoff=200); Cannabinoid Screen,Urine Negative ng/mL (Cutoff = 50); Cocaine Screen,Urine Negative ng/mL (Cutoff= 300); Opiate Screen,Urine Negative ng/mL (Cutoff=300); Phencyclidine Screen,Urine Negative ng/mL (Cutoff=25)
[2020-12-21] MEDS: Morphine Sulfate 2 MG/ML SYRINGE IVP PRN ×5 (04:46→21:24)
[2020-12-21 05:55] LABS: Hematocrit 38.1 % (37.5-50.1); Hemoglobin 11.9 g/dL (12.9-16.9); Mean Corpuscular HGB Conc 31.2 g/dL (31.6-35.5); Mean Corpuscular Hemoglobin 29.2 pg (28.0-33.3); Mean Corpuscular Volume 93.6 fL (83.0-100.0); Mean Platelet Volume 10.7 fL (9.4-12.4); Platelet Count 198 K/mcL (140-400); Red Blood Count 4.07 M/mcL (4.19-5.50); Red Cell Distribution Width 15.9 % (11.5-14.5); White Blood Count 19.5 K/mcL (4.3-11.1)
[2020-12-21] MEDS: Insulin LISPRO 300 UNITS/3 ML VIAL SUBQ SCH ×3 (05:56→18:09)
[2020-12-21] MEDS ORDERED: Famotidine 20 MG/2 ML VIAL IVP SCH ×2 (06:00→21:00)
[2020-12-21] MEDS ORDERED: *HR* Heparin 5,000 UNIT/ML VIAL SQ SCH (06:00)
[2020-12-21 06:03] LABS: Prothrombin Time 11.3 Seconds (9.4-12.1)
[2020-12-21 06:05] LABS: Activated Partial Thrombo Time 27.5 Seconds (26.0-36.0)
[2020-12-21 06:19] LABS: Calcium 8.8 mg/dL (8.6-10.3); Chol/HDL Ratio 3.4 (0-4.9); Magnesium 1.7 mg/dL (1.6-2.6); Potassium 3.6 mEq/L (3.5-5.1)
[2020-12-21] MEDS ORDERED: Regadenoson 0.4 MG/5 ML SYRINGE IVP ONE (06:19)
[2020-12-21 08:51] LABS: Folate 11.8 ng/mL (3.0-16.0)
[2020-12-21] MEDS ORDERED: *HR* Heparin 5,000 UNIT/ML VIAL IVP ONE (11:34)
[2020-12-21] MEDS ORDERED: *HR* Heparin 5,000 UNIT/ML VIAL IVP PRN ×2 (11:34)
[2020-12-21] MEDS ORDERED: Heparin 25,000UNIT/250ML 1/2NS 25,000 UNIT/250 ML IV.SOLN IVC SCH (11:45)
[2020-12-21 11:50] LABS: Hematocrit 34.8 % (37.5-50.1); Hemoglobin 10.9 g/dL (12.9-16.9); Mean Corpuscular HGB Conc 31.3 g/dL (31.6-35.5); Mean Corpuscular Hemoglobin 29.1 pg (28.0-33.3); Mean Corpuscular Volume 92.8 fL (83.0-100.0); Mean Platelet Volume 9.6 fL (9.4-12.4); Platelet Count 148 K/mcL (140-400); Red Blood Count 3.75 M/mcL (4.19-5.50); Red Cell Distribution Width 15.6 % (11.5-14.5); White Blood Count 12.8 K/mcL (4.3-11.1)
[2020-12-21 12:03] LABS: Prothrombin Time 11.6 Seconds (9.4-12.1)
[2020-12-21 12:06] LABS: Heparin anti-factor XA UFH 0.07 IU/mL (0.30-0.70)
[2020-12-21] MEDS: Isosorbide MONOnitrate (24 HR) 60 MG TAB.ER.24H PO SCH (15:13)
[2020-12-21] MEDS: cefTRIAXone 1,000 MG in 0.9 % Sodium Chloride Mini Bag 100 ML IVPB SCH (15:13)
[2020-12-21 17:53] LABS: Estimated Average Glucose 197 mg/dl; Hemoglobin A1C 8.5 %
[2020-12-21] MEDS: Ranolazine 500 MG TAB.ER.12H PO SCH (21:24)
[2020-12-21] MEDS: *HR* LORazepam 2 MG/ML VIAL IVP PRN (21:24)
[2020-12-22] MEDS: Insulin LISPRO 300 UNITS/3 ML VIAL SUBQ SCH ×3 (00:38→14:40)
[2020-12-22] MEDS: Morphine Sulfate 2 MG/ML SYRINGE IVP PRN ×4 (01:38→13:09)
[2020-12-22 04:58] LABS: Hematocrit 36.3 % (37.5-50.1); Hemoglobin 11.3 g/dL (12.9-16.9); Mean Corpuscular HGB Conc 31.1 g/dL (31.6-35.5); Mean Corpuscular Hemoglobin 29.1 pg (28.0-33.3); Mean Corpuscular Volume 93.6 fL (83.0-100.0); Mean Platelet Volume 10.7 fL (9.4-12.4); Platelet Count 160 K/mcL (140-400); Red Blood Count 3.88 M/mcL (4.19-5.50); Red Cell Distribution Width 15.3 % (11.5-14.5); White Blood Count 11.9 K/mcL (4.3-11.1)
[2020-12-22 06:14] LABS: Calcium 8.9 mg/dL (8.6-10.3); Potassium 4.7 mEq/L (3.5-5.1)
[2020-12-22] MEDS: Isosorbide MONOnitrate (24 HR) 60 MG TAB.ER.24H PO SCH (08:17)
[2020-12-22] MEDS: Ranolazine 500 MG TAB.ER.12H PO SCH (08:17)
[2020-12-22] MEDS ORDERED: carvediloL 6.25 MG TABLET PO SCH (08:20)
[2020-12-22] MEDS ORDERED: Aspirin Enteric Coated 81 MG Tablet PO SCH (09:00)
[2020-12-22] MEDS: *HR* LORazepam 2 MG/ML VIAL IVP PRN (13:09)
[2020-12-22 15:37] VITALS: BP 178/94
[2020-12-22] MEDS: cefTRIAXone 1,000 MG in 0.9 % Sodium Chloride Mini Bag 100 ML IVPB SCH (15:37)
[2020-12-23] MEDS ORDERED: Aspirin Enteric Coated 81 MG Tablet PO SCH (09:00)
== END 2020-12-22 17:36 | disposition home or self-care (01) ==
LOC: CDU 22:25 → EMEROOARM 22:25 → SUATTDRO 12-21 01:14 → CDU 12-21 03:20
PROVIDERS: ADMIT Internal Medicine; ATTEND Internal Medicine

== ENCOUNTER 2020-12-29 01:51 | Observation (INO) ==
[2020-12-29 01:56] VITALS: TEMP 98.1
[2020-12-29 02:46] LABS: Basophils % 0.6 %; Hemoglobin 11.3 g/dL (12.9-16.9); Immature Granulocytes % 0.7 % (0-4); Mean Corpuscular Volume 94.9 fL (83.0-100.0)
[2020-12-29 02:48] LABS: Basophils # 0.1 K/mcL (0.0-0.2); Eosinophils # 0.1 K/mcL (0.0-0.6); Hematocrit 37.2 % (37.5-50.1); Immature Platelets 4.1 % (1.1-6.1); Lymphocytes # 6.3 K/mcL (0.6-4.6); Lymphocytes % 52.3 %; Mean Corpuscular HGB Conc 30.4 g/dL (31.6-35.5); Mean Corpuscular Hemoglobin 28.8 pg (28.0-33.3); Mean Platelet Volume 10.8 fL (9.4-12.4); Monocytes # 0.6 K/mcL (0.0-1.3); Monocytes % 4.6 %; Neutrophils # 4.9 K/mcL (1.6-8.9); Platelet Count 161 K/mcL (140-400); Red Blood Count 3.92 M/mcL (4.19-5.50); Red Cell Distribution Width 15.2 % (11.5-14.5); Segmented Neutrophils % 40.8 %; White Blood Count 12.1 K/mcL (4.3-11.1)
[2020-12-29 03:06] LABS: BUN/Creatinine Ratio 16 (6-26); Blood Urea Nitrogen 41 mg/dL (8-23); Calcium 8.8 mg/dL (8.6-10.3); Carbon Dioxide 24 mEq/L (23-29); Chloride 107 mEq/L (98-107); Glucose 304 mg/dL (70-105); Osmolality,Calculated 310 (280-300); Potassium 4.7 mEq/L (3.5-5.1); Sodium 139 mEq/L (136-145); Troponin I < 0.03 ng/mL (< 0.04); eGFR For African Americans 30 (> 60); eGFR For Non-African Americans 25 (> 60)
[2020-12-29] MEDS ORDERED: Morphine Sulfate 2 MG/ML SYRINGE IVP ONE (03:40)
[2020-12-29 03:57] LABS: Platelet Estimate Normal (Normal)
[2020-12-29 04:13] VITALS: BP 175/77; PULSE 80; O2SAT 100
[2020-12-29 04:44] LABS: Heparin anti-factor XA UFH 0.04 IU/mL (0.30-0.70); INR 0.9; Prothrombin Time 10.6 Seconds (9.4-12.1)
== END 2020-12-29 05:55 | disposition left against medical advice (07) ==
LOC: CDU 01:51 → EMEROOARM 01:51 → CDU 05:37
PROVIDERS: ADMIT Internal Medicine; ATTEND Internal Medicine

== ENCOUNTER 2021-01-16 08:43 | Observation (INO) ==
[2021-01-16] MEDS ORDERED: Ondansetron 4 MG/2 ML VIAL IVP ONE (08:49)
[2021-01-16] MEDS ORDERED: Morphine Sulfate 2 MG/ML SYRINGE IVP ONE ×2 (08:49→11:18)
[2021-01-16 09:20] LABS: Hematocrit 33.3 % (37.5-50.1); Hemoglobin 10.7 g/dL (12.9-16.9); Mean Corpuscular HGB Conc 32.1 g/dL (31.6-35.5); Mean Corpuscular Hemoglobin 29.7 pg (28.0-33.3); Mean Corpuscular Volume 92.5 fL (83.0-100.0); Mean Platelet Volume 10.6 fL (9.4-12.4); Platelet Count 186 K/mcL (140-400); White Blood Count 17.4 K/mcL (4.3-11.1)
[2021-01-16 09:35] LABS: Blood Urea Nitrogen 38 mg/dL (8-23); Calcium 8.3 mg/dL (8.6-10.3); Carbon Dioxide 24 mEq/L (23-29); Chloride 106 mEq/L (98-107); Glucose 264 mg/dL (70-105); Osmolality,Calculated 302 (280-300); Potassium 4.7 mEq/L (3.5-5.1); Sodium 137 mEq/L (136-145)
[2021-01-16 09:50] LABS: BUN/Creatinine Ratio 14 (6-26); Eosinophils # 0.4 K/mcL (0.0-0.6); Lymphocytes # 8.2 K/mcL (0.6-4.6); Neutrophils # 7.8 K/mcL (1.6-8.9); Reactive Lymphocytes Present (Not Present); eGFR For African Americans 30 (> 60); eGFR For Non-African Americans 24 (> 60)
[2021-01-16 09:51] LABS: Platelet Estimate Normal (Normal)
[2021-01-16 10:27] LABS: Troponin I < 0.03 ng/mL (< 0.04)
[2021-01-16] MEDS ORDERED: Acetaminophen 325 MG TABLET PO PRN (12:18)
[2021-01-16] MEDS ORDERED: Melatonin 3 MG TABLET PO PRN (12:18)
[2021-01-16] MEDS ORDERED: Naloxone 0.4 MG/ML INJ IVP PRN (12:18)
[2021-01-16] MEDS ORDERED: *HR* OxyCODONE Immed Rel 5 MG TABLET PO PRN (12:18)
[2021-01-16] MEDS ORDERED: Ondansetron 4 MG/2 ML VIAL IVP PRN (12:18)
[2021-01-16] MEDS: Isosorbide MONOnitrate (24 HR) 60 MG TAB.ER.24H PO SCH (12:43)
[2021-01-16] MEDS ORDERED: Perflutren Lipid Microsphere 1.3 ML in 0.9 % Sodium Chloride 8.7 ML IVP PRN (12:48)
[2021-01-16] MEDS ORDERED: D5% in Water 1,000 ML IVC PRN (13:03)
[2021-01-16] MEDS ORDERED: Dextrose Gel 15 GM/37.5 ML TUBE PO PRN ×2 (13:03)
[2021-01-16] MEDS ORDERED: *HR* Dextrose 50 % in Water (Vial) 50 ML VIAL IVP PRN (13:03)
[2021-01-16] MEDS ORDERED: Famotidine 20 MG TABLET PO PRN (15:53)
[2021-01-16 16:45] LABS: Bilirubin,Urine Negative (Negative); Blood,Urine Negative (Negative); Clarity,Urine Turbid (Clear); Color,Urine Light-Yellow (Yellow); Glucose,Urine (UA) 300 mg/dL (Normal); Ketones,Urine Negative (Negative); Leukocyte Esterase,Urine Negative (Negative); Mucus,Urine Few per lpf (None-Few); Nitrite,Urine Negative (Negative); Protein,Urine >=300 mg/dL (Neg-Trace); RBC,Urine 0-3 per hpf (0-3); Specific Gravity,Urine 1.019 (1.010-1.025); Squamous Epithelial Cell,Urine Few per hpf (None-Few); Urobilinogen,Urine Normal (Normal)
[2021-01-16 16:47] LABS: Amphetamine Screen,Urine Negative ng/mL (Cutoff=1000); Barbiturate Screen,Urine Negative ng/mL (Cutoff=200); Benzodiazepines Screen,Urine Negative ng/mL (Cutoff=200); Cannabinoid Screen,Urine Negative ng/mL (Cutoff = 50); Cocaine Screen,Urine Negative ng/mL (Cutoff= 300); Opiate Screen,Urine Positive ng/mL (Cutoff=300); Phencyclidine Screen,Urine Negative ng/mL (Cutoff=25)
[2021-01-16] MEDS: *HR* HYDROcodone/Acet 5/325 mg TABLET PO PRN ×2 (17:32→17:35)
[2021-01-16] MEDS: carvediloL 6.25 MG TABLET PO SCH (17:32)
[2021-01-16] MEDS: Sucralfate 1 GM TABLET PO SCH ×2 (17:32→20:48)
[2021-01-16] MEDS: Insulin LISPRO 300 UNITS/3 ML VIAL SUBQ SCH ×2 (17:39)
[2021-01-16 18:14] LABS: Basophils # 0.1 K/mcL (0.0-0.2); Basophils % 0.5 %; Eosinophils # 0.1 K/mcL (0.0-0.6); Eosinophils % 0.8 %; Hematocrit 33.9 % (37.5-50.1); Hemoglobin 10.5 g/dL (12.9-16.9); Immature Granulocytes % 1.1 % (0-4); Lymphocytes # 8.3 K/mcL (0.6-4.6); Mean Corpuscular Hemoglobin 28.8 pg (28.0-33.3); Mean Corpuscular Volume 92.9 fL (83.0-100.0); Monocytes # 0.9 K/mcL (0.0-1.3); Monocytes % 4.9 %; Platelet Count 177 K/mcL (140-400); Red Blood Count 3.65 M/mcL (4.19-5.50); Segmented Neutrophils % 45.7 %; White Blood Count 17.6 K/mcL (4.3-11.1)
[2021-01-16 19:00] LABS: Platelet Estimate Normal (Normal)
[2021-01-16] MEDS ORDERED: Ipratropium/Albuterol Neb 3 ML IH PRN (19:23)
[2021-01-16] MEDS: Ranolazine 500 MG TAB.ER.12H PO SCH (20:48)
[2021-01-16] MEDS: *HR* OxyCODONE Immed Rel 5 MG TABLET PO PRN (20:48)
[2021-01-16] MEDS: Insulin DETEMIR 100 UNIT/ML X5UNITS SUBQ SCH (20:48)
[2021-01-17 03:45] LABS: Basophils # 0.1 K/mcL (0.0-0.2); Basophils % 0.5 %; Eosinophils # 0.1 K/mcL (0.0-0.6); Eosinophils % 0.7 %; Hemoglobin 9.6 g/dL (12.9-16.9); Immature Granulocytes % 0.8 % (0-4); Lymphocytes # 6.7 K/mcL (0.6-4.6); Lymphocytes % 43.9 %; Mean Corpuscular Hemoglobin 29.7 pg (28.0-33.3); Mean Corpuscular Volume 92.9 fL (83.0-100.0); Mean Platelet Volume 10.3 fL (9.4-12.4); Monocytes # 0.7 K/mcL (0.0-1.3); Monocytes % 4.6 %; Neutrophils # 7.6 K/mcL (1.6-8.9); Platelet Count 161 K/mcL (140-400); Red Blood Count 3.23 M/mcL (4.19-5.50); Red Cell Distribution Width 14.9 % (11.5-14.5); Segmented Neutrophils % 49.5 %; White Blood Count 15.3 K/mcL (4.3-11.1)
[2021-01-17 04:06] LABS: Albumin 3.1 g/dL (3.5-5.7); Albumin/Globulin Ratio 1.2 (1.1-2.2); Bilirubin,Total 0.3 mg/dL (0.3-1.0); Globulin 2.5 g/dL (2.4-3.5); Magnesium 1.7 mg/dL (1.6-2.6); Phosphorous 3.7 mg/dL (2.7-4.5); Potassium 5.4 mEq/L (3.5-5.1); Total Protein 5.6 g/dL (6.4-8.9)
[2021-01-17 04:09] LABS: Platelet Estimate Normal (Normal); Reactive Lymphocytes Present (Not Present)
[2021-01-17 04:30] LABS: Folate 7.2 ng/mL (3.0-16.0)
[2021-01-17] MEDS: *HR* OxyCODONE Immed Rel 5 MG TABLET PO PRN (05:30)
[2021-01-17] MEDS: *HR* Heparin 5,000 UNIT/ML VIAL SQ SCH ×2 (05:30→21:27)
[2021-01-17 06:55] LABS: Adenovirus Not Detected (Not Detect); Bordetella Pertussis Not Detected (Not Detect); Chlamydophila pneumoniae Not Detected (Not Detect); Coronavirus 229E Not Detected (Not Detect); Coronavirus HKU1 Not Detected (Not Detect); Coronavirus NL63 Not Detected (Not Detect); Coronavirus OC43 Not Detected (Not Detect); Human Metapneumovirus Not Detected (Not Detect); Human Rhinovirus/Enterovirus Not Detected (Not Detect); Influenza A Subtype 2009 H1 Not Detected (Not Detect); Influenza B Not Detected (Not Detect); Mycoplasma pneumoniae Not Detected (Not Detect); Parainfluenza Virus 1 Not Detected (Not Detect); Parainfluenza Virus 2 Not Detected (Not Detect); Parainfluenza Virus 3 Not Detected (Not Detect); Parainfluenza Virus 4 Not Detected (Not Detect); Respiratory Syncytial Virus Not Detected (Not Detect); SARS-CoV-2 Not Detected (Not Detect)
[2021-01-17] MEDS ORDERED: hydrALAZINE 25 MG TABLET PO SCH (09:00)
[2021-01-17 09:28] LABS: Potassium 5.4 mEq/L (3.5-5.1)
[2021-01-17] MEDS: Insulin LISPRO 300 UNITS/3 ML VIAL SUBQ SCH ×5 (13:08→21:50)
[2021-01-17] MEDS: carvediloL 6.25 MG TABLET PO SCH ×2 (13:09→21:26)
[2021-01-17] MEDS: Aspirin Enteric Coated 81 MG Tablet PO SCH (13:09)
[2021-01-17] MEDS: Isosorbide MONOnitrate (24 HR) 60 MG TAB.ER.24H PO SCH (13:10)
[2021-01-17] MEDS: Nicotine 21 MG PATCH.TD24 TD SCH (13:10)
[2021-01-17] MEDS: Sucralfate 1 GM TABLET PO SCH ×3 (13:10→21:26)
[2021-01-17] MEDS: NIFEdipine XL (24 HR) 30 MG TAB.ER.24 PO SCH (13:11)
[2021-01-17] MEDS: Ranolazine 500 MG TAB.ER.12H PO SCH ×2 (13:11→21:26)
[2021-01-17 19:20] LABS: Enterococcus by PCR Not Detected (Not Detect); Staphylococcus aureus by PCR DETECTED (Not Detect); Staphylococcus by PCR Not Detected (Not Detect); Streptococcus agalactiae(B)PCR Not Detected (Not Detect); Streptococcus by PCR Not Detected (Not Detect); mecA Methicillin-Resist Gene Not Detected (Not Detect); vanA/B Vancomycin-Resist Genes Not Detected (Not Detect)
[2021-01-17 19:21] LABS: Acinetobacter baumannii by PCR Not Detected (Not Detect); Candida albicans by PCR Not Detected (Not Detect); Candida glabrata by PCR Not Detected (Not Detect); Candida krusei by PCR Not Detected (Not Detect); Candida parapsilosis by PCR Not Detected (Not Detect); Candida tropicalis by PCR Not Detected (Not Detect); Enterobacter cloacae Cmplx PCR Not Detected (Not Detect); Enterobacteriaceae by PCR Not Detected (Not Detect); Escherichia coli by PCR Not Detected (Not Detect); Klebsiella oxytoca by PCR Not Detected (Not Detect); Klebsiella pneumoniae by PCR Not Detected (Not Detect); Proteus by PCR Not Detected (Not Detect); Pseudomonas aeruginosa by PCR Not Detected (Not Detect); Serratia marcescens by PCR Not Detected (Not Detect); Streptococcus pneumoniae PCR Not Detected (Not Detect); Streptococcus pyogenes (A) PCR Not Detected (Not Detect)
[2021-01-17] MEDS ORDERED: Vancomycin 1,250 MG/262.5 ML IV.SOLN IVPB ONE (20:00)
[2021-01-17] MEDS: Insulin DETEMIR 100 UNIT/ML X5UNITS SUBQ SCH (21:28)
[2021-01-17] MEDS ORDERED: Insulin LISPRO 300 UNITS/3 ML VIAL SUBQ SCH (21:45)
[2021-01-18] MEDS: *HR* Heparin 5,000 UNIT/ML VIAL SQ SCH (04:30)
[2021-01-18] MEDS: Insulin LISPRO 300 UNITS/3 ML VIAL SUBQ SCH ×4 (07:36→12:29)
[2021-01-18 09:59] LABS: Hematocrit 30.8 % (37.5-50.1); Hemoglobin 9.9 g/dL (12.9-16.9); Mean Corpuscular HGB Conc 32.1 g/dL (31.6-35.5); Mean Corpuscular Hemoglobin 29.4 pg (28.0-33.3); Mean Corpuscular Volume 91.4 fL (83.0-100.0); Mean Platelet Volume 10.5 fL (9.4-12.4); Platelet Count 133 K/mcL (140-400); Red Blood Count 3.37 M/mcL (4.19-5.50); Red Cell Distribution Width 14.6 % (11.5-14.5); White Blood Count 17.3 K/mcL (4.3-11.1)
[2021-01-18] MEDS ORDERED: Ampicillin 2,000 MG in 0.9 % Sodium Chloride Mini Bag 100 ML IVPB SCH (10:00)
[2021-01-18 10:30] LABS: Albumin 3.1 g/dL (3.5-5.7); Albumin/Globulin Ratio 1.1 (1.1-2.2); Bilirubin,Total 0.5 mg/dL (0.3-1.0); Calcium 8.6 mg/dL (8.6-10.3); Globulin 2.8 g/dL (2.4-3.5); Magnesium 1.5 mg/dL (1.6-2.6); Phosphorous 2.9 mg/dL (2.7-4.5); Potassium 4.6 mEq/L (3.5-5.1); Total Protein 5.9 g/dL (6.4-8.9)
[2021-01-18 10:32] VITALS: BP 189/81; PULSE 94; TEMP 102.8; O2SAT 93
[2021-01-18 10:43] LABS: Anisocytosis 1+ (Not Present); Hypochromasia Present (Not Present); Lymphocytes # 2.6 K/mcL (0.6-4.6); Microcytosis Present (Not Present); Neutrophils # 13.7 K/mcL (1.6-8.9); Platelet Estimate Slight Decrease (Normal); Toxic Vacuolation Present (Not Present)
[2021-01-18] MEDS: Aspirin Enteric Coated 81 MG Tablet PO SCH (10:43)
[2021-01-18] MEDS: Nicotine 21 MG PATCH.TD24 TD SCH (10:44)
[2021-01-18] MEDS: Sucralfate 1 GM TABLET PO SCH (10:44)
[2021-01-18] MEDS: Isosorbide MONOnitrate (24 HR) 60 MG TAB.ER.24H PO SCH (10:44)
[2021-01-18] MEDS: Ranolazine 500 MG TAB.ER.12H PO SCH (10:44)
[2021-01-18] MEDS: carvediloL 6.25 MG TABLET PO SCH (10:44)
[2021-01-18] MEDS: NIFEdipine XL (24 HR) 30 MG TAB.ER.24 PO SCH (10:50)
== END 2021-01-18 13:53 | disposition left against medical advice (07) ==
LOC: EMEROOARM 08:43 → 3BNU 08:43 → SUATTDRO 11:28 → 3BNU 12:08
PROVIDERS: ADMIT Internal Medicine; ATTEND Internal Medicine

== ENCOUNTER 2021-01-18 15:59 | Inpatient (IN) ==
[2021-01-18] MEDS ORDERED: Piperacillin/Tazobactam 3.375 GM in Water for inj. (sterile) 20 ML IVP ONE (16:24)
[2021-01-18] MEDS ORDERED: 0.9 % Sodium Chloride 1,000 ML IVC ONE ×2 (16:24→17:15)
[2021-01-18] MEDS ORDERED: Ipratropium/Albuterol Neb 3 ML IH ONE (17:30)
[2021-01-18 17:45] LABS: Hematocrit 30.6 % (37.5-50.1); Hemoglobin 9.7 g/dL (12.9-16.9); Mean Corpuscular HGB Conc 31.7 g/dL (31.6-35.5); Mean Corpuscular Volume 91.6 fL (83.0-100.0); Mean Platelet Volume 10.7 fL (9.4-12.4); Platelet Count 124 K/mcL (140-400); Red Blood Count 3.34 M/mcL (4.19-5.50); Red Cell Distribution Width 14.6 % (11.5-14.5)
[2021-01-18 17:53] LABS: INR 1.2
[2021-01-18 17:56] LABS: Activated Partial Thrombo Time 28.3 Seconds (26.0-36.0)
[2021-01-18] MEDS ORDERED: Naloxone 0.4 MG/ML INJ IVP PRN (17:59)
[2021-01-18] MEDS ORDERED: Vancomycin 1,250 MG/262.5 ML IV.SOLN IVPB ONE (18:00)
[2021-01-18] MEDS ORDERED: Perflutren Lipid Microsphere 1.3 ML in 0.9 % Sodium Chloride 8.7 ML IVP PRN (18:06)
[2021-01-18 18:07] LABS: Albumin 3.1 g/dL (3.5-5.7); Bilirubin,Direct 0.1 mg/dL (0.0-0.2); Bilirubin,Indirect 0.5 mg/dL (0.0-1.0); Bilirubin,Total 0.6 mg/dL (0.3-1.0); Calcium 8.5 mg/dL (8.6-10.3); Potassium 5.5 mEq/L (3.5-5.1); Total Protein 6.1 g/dL (6.4-8.9); Troponin I 0.03 ng/mL (< 0.04)
[2021-01-18 18:13] LABS: Lymphocytes # 1.7 K/mcL (0.6-4.6); Neutrophils # 15.3 K/mcL (1.6-8.9); Platelet Estimate Slight Decrease (Normal)
[2021-01-18] MEDS ORDERED: Dextrose Gel 15 GM/37.5 ML TUBE PO PRN ×2 (19:29)
[2021-01-18] MEDS ORDERED: *HR* Dextrose 50 % in Water (Vial) 50 ML VIAL IVP PRN (19:29)
[2021-01-18] MEDS ORDERED: D5% in Water 1,000 ML IVC PRN (19:29)
[2021-01-18] MEDS ORDERED: Insulin Human Regular 10 UNIT in 0.9 % Sodium Chloride 10 ML IV ONE (20:13)
[2021-01-18] MEDS ORDERED: *HR* Dextrose 50 % in Water (Vial) 50 ML VIAL IVP ONE (20:13)
[2021-01-18] MEDS: Ipratropium/Albuterol Neb 3 ML IH SCH ×2 (20:15→23:31)
[2021-01-18] MEDS: 0.9 % Sodium Chloride 1,000 ML IVC SCH (21:32)
[2021-01-18] MEDS: Insulin LISPRO 300 UNITS/3 ML VIAL SUBQ SCH (22:04)
[2021-01-18] MEDS: *HR* Heparin 5,000 UNIT/ML VIAL SQ SCH (22:04)
[2021-01-18] MEDS: Insulin DETEMIR 100 UNIT/ML X5UNITS SUBQ SCH (22:05)
[2021-01-18] MEDS: Metoprolol XL (24 HR) Succ 25 MG TAB.ER.24H PO SCH (22:16)
[2021-01-18] MEDS: carvediloL 6.25 MG TABLET PO SCH (22:16)
[2021-01-18] MEDS: Budesonide/Formoterol 160/4.5 1 PUFF INH IH SCH (23:31)
[2021-01-19] MEDS ORDERED: 0.9 % Sodium Chloride 1,000 ML IVC ONE (01:01)
[2021-01-19 01:12] LABS: Mean Platelet Volume 10.7 fL (9.4-12.4)
[2021-01-19] MEDS: Piperacillin/Tazobactam 3.375 GM in 0.9 % Sodium Chloride Mini Bag 100 ML IVPB SCH ×2 (01:13→09:30)
[2021-01-19 01:14] LABS: Hematocrit 25.3 % (37.5-50.1); Hemoglobin 8.1 g/dL (12.9-16.9); Mean Corpuscular Hemoglobin 29.6 pg (28.0-33.3); Mean Corpuscular Volume 92.3 fL (83.0-100.0); Red Blood Count 2.74 M/mcL (4.19-5.50); Red Cell Distribution Width 14.7 % (11.5-14.5); White Blood Count 14.7 K/mcL (4.3-11.1)
[2021-01-19 01:16] LABS: Platelet Count 91 K/mcL (140-400)
[2021-01-19 01:30] LABS: Platelet Estimate Slight Decrease (Normal)
[2021-01-19 01:31] LABS: Lymphocytes # 3.5 K/mcL (0.6-4.6); Monocytes # 0.3 K/mcL (0.0-1.3); Neutrophils # 10.9 K/mcL (1.6-8.9); Reactive Lymphocytes Present (Not Present)
[2021-01-19 01:32] LABS: Calcium 7.9 mg/dL (8.6-10.3); Magnesium 1.6 mg/dL (1.6-2.6); Phosphorous 5.4 mg/dL (2.7-4.5)
[2021-01-19] MEDS: Ipratropium/Albuterol Neb 3 ML IH SCH ×6 (03:38→23:58)
[2021-01-19] MEDS: *HR* Heparin 5,000 UNIT/ML VIAL SQ SCH ×2 (05:40→16:32)
[2021-01-19] MEDS: 0.9 % Sodium Chloride 1,000 ML IVC SCH (06:46)
[2021-01-19] MEDS ORDERED: Vancomycin 1,250 MG/262.5 ML IV.SOLN IVPB SCH (07:00)
[2021-01-19] MEDS: Budesonide/Formoterol 160/4.5 1 PUFF INH IH SCH ×2 (07:21→19:51)
[2021-01-19] MEDS: carvediloL 6.25 MG TABLET PO SCH (09:22)
[2021-01-19] MEDS: Isosorbide MONOnitrate (24 HR) 60 MG TAB.ER.24H PO SCH (09:22)
[2021-01-19] MEDS: Metoprolol XL (24 HR) Succ 25 MG TAB.ER.24H PO SCH (09:22)
[2021-01-19] MEDS: Aspirin Enteric Coated 81 MG Tablet PO SCH (09:28)
[2021-01-19] MEDS: Insulin LISPRO 300 UNITS/3 ML VIAL SUBQ SCH ×4 (09:31→20:42)
[2021-01-19 09:42] LABS: Enterococcus by PCR Not Detected (Not Detect); Staphylococcus aureus by PCR DETECTED (Not Detect); mecA Methicillin-Resist Gene DETECTED (Not Detect)
[2021-01-19 09:43] LABS: Acinetobacter baumannii by PCR Not Detected (Not Detect); Candida albicans by PCR Not Detected (Not Detect); Candida glabrata by PCR Not Detected (Not Detect); Candida krusei by PCR Not Detected (Not Detect); Candida parapsilosis by PCR Not Detected (Not Detect); Candida tropicalis by PCR Not Detected (Not Detect); Enterobacter cloacae Cmplx PCR Not Detected (Not Detect); Enterobacteriaceae by PCR Not Detected (Not Detect); Escherichia coli by PCR Not Detected (Not Detect); Klebsiella oxytoca by PCR Not Detected (Not Detect); Klebsiella pneumoniae by PCR Not Detected (Not Detect); Proteus by PCR Not Detected (Not Detect); Pseudomonas aeruginosa by PCR Not Detected (Not Detect); Serratia marcescens by PCR Not Detected (Not Detect); Streptococcus agalactiae(B)PCR Not Detected (Not Detect); Streptococcus by PCR Not Detected (Not Detect); Streptococcus pneumoniae PCR Not Detected (Not Detect); Streptococcus pyogenes (A) PCR Not Detected (Not Detect)
[2021-01-19] MEDS: Ceftaroline Fosamil Acetate 300 MG in 0.9 % Sodium Chloride 50 ML IVPB SCH (16:31)
[2021-01-19] MEDS ORDERED: MethylPREDNISolone 40 MG/ML VIAL IVP SCH (18:49)
[2021-01-19] MEDS: Insulin DETEMIR 100 UNIT/ML X5UNITS SUBQ SCH (20:46)
[2021-01-20] MEDS: Ipratropium/Albuterol Neb 3 ML IH SCH ×6 (03:31→23:47)
[2021-01-20] MEDS: Ceftaroline Fosamil Acetate 300 MG in 0.9 % Sodium Chloride 50 ML IVPB SCH ×2 (03:49→16:11)
[2021-01-20 04:09] LABS: Bacteria,Urine Few per hpf (None-Few); Bilirubin,Urine Negative (Negative); Blood,Urine Trace (Negative); Clarity,Urine Turbid (Clear); Color,Urine Yellow (Yellow); Glucose,Urine (UA) 30 mg/dL (Normal); Ketones,Urine Negative (Negative); Leukocyte Esterase,Urine Trace (Negative); Mucus,Urine Few per lpf (None-Few); Nitrite,Urine Negative (Negative); Protein,Urine 200 mg/dL (Neg-Trace); Specific Gravity,Urine 1.015 (1.010-1.025); Squamous Epithelial Cell,Urine Few per hpf (None-Few); Urobilinogen,Urine Normal (Normal)
[2021-01-20] MEDS: *HR* Heparin 5,000 UNIT/ML VIAL SQ SCH ×2 (05:00→18:48)
[2021-01-20] MEDS: Budesonide/Formoterol 160/4.5 1 PUFF INH IH SCH ×2 (07:52→19:47)
[2021-01-20] MEDS: Aspirin Enteric Coated 81 MG Tablet PO SCH (10:06)
[2021-01-20] MEDS: Insulin LISPRO 300 UNITS/3 ML VIAL SUBQ SCH ×4 (10:06→21:31)
[2021-01-20] MEDS: Isosorbide MONOnitrate (24 HR) 60 MG TAB.ER.24H PO SCH (10:07)
[2021-01-20] MEDS: Ranolazine 500 MG TAB.ER.12H PO SCH ×2 (10:07→21:31)
[2021-01-20] MEDS: Metoprolol XL (24 HR) Succ 25 MG TAB.ER.24H PO SCH (10:07)
[2021-01-20 10:52] LABS: Immature Granulocytes % 0.7 % (0-4)
[2021-01-20 10:54] LABS: Hematocrit 25.5 % (37.5-50.1); Hemoglobin 8.2 g/dL (12.9-16.9); Immature Platelets 5.9 % (1.1-6.1); Lymphocytes # 3.5 K/mcL (0.6-4.6); Mean Corpuscular HGB Conc 32.2 g/dL (31.6-35.5); Mean Corpuscular Hemoglobin 29.2 pg (28.0-33.3); Mean Corpuscular Volume 90.7 fL (83.0-100.0); Mean Platelet Volume 11.9 fL (9.4-12.4); Monocytes # 0.7 K/mcL (0.0-1.3); Red Blood Count 2.81 M/mcL (4.19-5.50); Red Cell Distribution Width 14.8 % (11.5-14.5); White Blood Count 14.2 K/mcL (4.3-11.1)
[2021-01-20 11:14] LABS: Calcium 7.7 mg/dL (8.6-10.3); Potassium 4.3 mEq/L (3.5-5.1)
[2021-01-20 11:21] LABS: Anisocytosis 1+ (Not Present); Hypochromasia Present (Not Present); Reactive Lymphocytes Present (Not Present)
[2021-01-20 11:25] LABS: Neutrophils # 10.7 K/mcL (1.6-8.9); Platelet Count 83 K/mcL (140-400)
[2021-01-20 12:20] LABS: Complement C3 117 mg/dL (87-200)
[2021-01-20] MEDS: MethylPREDNISolone 40 MG/ML VIAL IVP SCH ×2 (16:11→23:09)
[2021-01-20] MEDS: *HR* OxyCODONE/APAP 5/325 TABLET PO PRN (16:12)
[2021-01-20] MEDS: Insulin DETEMIR 100 UNIT/ML X5UNITS SUBQ SCH (21:31)
[2021-01-21] MEDS: Ipratropium/Albuterol Neb 3 ML IH SCH ×6 (03:18→23:38)
[2021-01-21] MEDS: Ceftaroline Fosamil Acetate 300 MG in 0.9 % Sodium Chloride 50 ML IVPB SCH ×2 (03:52→15:46)
[2021-01-21] MEDS: *HR* Heparin 5,000 UNIT/ML VIAL SQ SCH ×2 (05:26→17:38)
[2021-01-21] MEDS: Budesonide/Formoterol 160/4.5 1 PUFF INH IH SCH ×2 (07:33→19:34)
[2021-01-21 07:41] LABS: Basophils % 0.1 %; Red Cell Distribution Width 14.9 % (11.5-14.5)
[2021-01-21 07:43] LABS: Hematocrit 24.9 % (37.5-50.1); Immature Granulocytes % 0.9 % (0-4); Immature Platelets 6.8 % (1.1-6.1); Lymphocytes # 1.8 K/mcL (0.6-4.6); Lymphocytes % 19.6 %; Mean Corpuscular HGB Conc 32.1 g/dL (31.6-35.5); Mean Corpuscular Hemoglobin 28.6 pg (28.0-33.3); Mean Corpuscular Volume 88.9 fL (83.0-100.0); Mean Platelet Volume 11.9 fL (9.4-12.4); Monocytes # 0.2 K/mcL (0.0-1.3); Monocytes % 1.9 %; Segmented Neutrophils % 77.5 %; White Blood Count 9.1 K/mcL (4.3-11.1)
[2021-01-21 07:59] LABS: Calcium 7.9 mg/dL (8.6-10.3); Potassium 5.1 mEq/L (3.5-5.1)
[2021-01-21] MEDS: Aspirin Enteric Coated 81 MG Tablet PO SCH (08:03)
[2021-01-21] MEDS: Ranolazine 500 MG TAB.ER.12H PO SCH ×2 (08:03→21:24)
[2021-01-21] MEDS: MethylPREDNISolone 40 MG/ML VIAL IVP SCH ×2 (08:03→15:45)
[2021-01-21] MEDS: Isosorbide MONOnitrate (24 HR) 60 MG TAB.ER.24H PO SCH (08:03)
[2021-01-21] MEDS: Metoprolol XL (24 HR) Succ 25 MG TAB.ER.24H PO SCH (08:03)
[2021-01-21] MEDS: Insulin LISPRO 300 UNITS/3 ML VIAL SUBQ SCH ×4 (08:04→21:25)
[2021-01-21 08:09] LABS: Neutrophils # 7.1 K/mcL (1.6-8.9); Platelet Count 88 K/mcL (140-400)
[2021-01-21 08:43] LABS: Platelet Estimate Decreased (Normal); Reactive Lymphocytes Present (Not Present)
[2021-01-21 08:44] LABS: Hypochromasia Present (Not Present)
[2021-01-21] MEDS ORDERED: Lidocaine Viscous Oral Soln 15 ML SOLUTION MM PRN (10:45)
[2021-01-21] MEDS ORDERED: 0.9 % Sodium Chloride 500 ML IVC ONE (10:46)
[2021-01-21] MEDS: *HR* FentaNYL (PF) 100 MCG/2 ML VIAL IVP PRN ×3 (11:15→11:30)
[2021-01-21] MEDS: *HR* Midazolam HCl 5 MG/5 ML VIAL IVP PRN ×3 (11:15→11:30)
[2021-01-21] MEDS: *HR* OxyCODONE/APAP 5/325 TABLET PO PRN (17:16)
[2021-01-21] MEDS: Nicotine 21 MG PATCH.TD24 TD SCH (17:38)
[2021-01-21] MEDS: Insulin DETEMIR 100 UNIT/ML X5UNITS SUBQ SCH (21:25)
[2021-01-21] MEDS ORDERED: Menthol 1 EACH LOZENGE PO PRN (22:24)
[2021-01-22] MEDS: MethylPREDNISolone 40 MG/ML VIAL IVP SCH ×4 (00:37→23:01)
[2021-01-22] MEDS: *HR* OxyCODONE/APAP 5/325 TABLET PO PRN ×3 (01:16→18:09)
[2021-01-22 03:05] LABS: Basophils % 0.1 %; Hematocrit 23.9 % (37.5-50.1); Immature Granulocytes % 0.7 % (0-4); Lymphocytes # 1.8 K/mcL (0.6-4.6); Lymphocytes % 14.4 %; Mean Corpuscular HGB Conc 33.5 g/dL (31.6-35.5); Mean Corpuscular Hemoglobin 29.2 pg (28.0-33.3); Mean Corpuscular Volume 87.2 fL (83.0-100.0); Mean Platelet Volume 11.7 fL (9.4-12.4); Monocytes # 0.4 K/mcL (0.0-1.3); Neutrophils # 10.3 K/mcL (1.6-8.9); Platelet Count 121 K/mcL (140-400); Red Blood Count 2.74 M/mcL (4.19-5.50); Red Cell Distribution Width 15.2 % (11.5-14.5); Segmented Neutrophils % 81.8 %; White Blood Count 12.6 K/mcL (4.3-11.1)
[2021-01-22 03:24] LABS: Calcium 7.8 mg/dL (8.6-10.3)
[2021-01-22] MEDS: Ceftaroline Fosamil Acetate 300 MG in 0.9 % Sodium Chloride 50 ML IVPB SCH ×2 (03:44→16:01)
[2021-01-22] MEDS: Ipratropium/Albuterol Neb 3 ML IH SCH ×5 (04:17→19:35)
[2021-01-22] MEDS: *HR* Heparin 5,000 UNIT/ML VIAL SQ SCH ×2 (05:07→18:09)
[2021-01-22] MEDS: Budesonide/Formoterol 160/4.5 1 PUFF INH IH SCH ×2 (07:51→19:38)
[2021-01-22] MEDS: Ranolazine 500 MG TAB.ER.12H PO SCH ×2 (08:46→19:45)
[2021-01-22] MEDS: Isosorbide MONOnitrate (24 HR) 60 MG TAB.ER.24H PO SCH (08:46)
[2021-01-22] MEDS: Nicotine 21 MG PATCH.TD24 TD SCH (08:46)
[2021-01-22] MEDS: Metoprolol XL (24 HR) Succ 25 MG TAB.ER.24H PO SCH (08:46)
[2021-01-22] MEDS: Aspirin Enteric Coated 81 MG Tablet PO SCH (08:46)
[2021-01-22] MEDS: Insulin LISPRO 300 UNITS/3 ML VIAL SUBQ SCH ×4 (08:47→19:46)
[2021-01-22] MEDS: Ondansetron 4 MG/2 ML VIAL IVP PRN (11:06)
[2021-01-22] MEDS: Insulin DETEMIR 100 UNIT/ML X5UNITS SUBQ SCH (19:45)
[2021-01-23] MEDS: Ipratropium/Albuterol Neb 3 ML IH SCH ×6 (00:11→20:04)
[2021-01-23] MEDS: *HR* OxyCODONE/APAP 5/325 TABLET PO PRN ×3 (02:28→19:57)
[2021-01-23] MEDS: Ceftaroline Fosamil Acetate 300 MG in 0.9 % Sodium Chloride 50 ML IVPB SCH ×2 (02:29→16:47)
[2021-01-23] MEDS: *HR* Heparin 5,000 UNIT/ML VIAL SQ SCH ×2 (05:51→16:31)
[2021-01-23] MEDS: Budesonide/Formoterol 160/4.5 1 PUFF INH IH SCH ×2 (07:21→20:04)
[2021-01-23] MEDS: Nicotine 21 MG PATCH.TD24 TD SCH (07:47)
[2021-01-23] MEDS: MethylPREDNISolone 40 MG/ML VIAL IVP SCH ×2 (07:47→16:47)
[2021-01-23] MEDS: Aspirin Enteric Coated 81 MG Tablet PO SCH (07:47)
[2021-01-23] MEDS: Ranolazine 500 MG TAB.ER.12H PO SCH ×2 (07:47→19:58)
[2021-01-23] MEDS: Insulin LISPRO 300 UNITS/3 ML VIAL SUBQ SCH ×4 (07:48→19:58)
[2021-01-23] MEDS: Metoprolol XL (24 HR) Succ 25 MG TAB.ER.24H PO SCH (07:48)
[2021-01-23] MEDS: Isosorbide MONOnitrate (24 HR) 60 MG TAB.ER.24H PO SCH (07:48)
[2021-01-23 08:54] LABS: Hematocrit 25.4 % (37.5-50.1); Hemoglobin 8.1 g/dL (12.9-16.9); Mean Corpuscular HGB Conc 31.9 g/dL (31.6-35.5); Mean Corpuscular Hemoglobin 28.2 pg (28.0-33.3); Mean Corpuscular Volume 88.5 fL (83.0-100.0); Mean Platelet Volume 11.2 fL (9.4-12.4); Monocytes # 0.4 K/mcL (0.0-1.3); Platelet Count 139 K/mcL (140-400); Red Blood Count 2.87 M/mcL (4.19-5.50); Red Cell Distribution Width 15.7 % (11.5-14.5); White Blood Count 10.1 K/mcL (4.3-11.1)
[2021-01-23 09:12] LABS: Calcium 7.9 mg/dL (8.6-10.3); Potassium 5.4 mEq/L (3.5-5.1)
[2021-01-23 09:30] LABS: Lymphocytes # 2.6 K/mcL (0.6-4.6); Neutrophils # 7.1 K/mcL (1.6-8.9); Platelet Estimate Normal (Normal)
[2021-01-23] MEDS: Sodium Bicarbonate 75 MEQ in 0.45 % Sodium Chloride 1,000 ML IVC SCH ×2 (11:05→21:14)
[2021-01-23] MEDS: SODIUM ZIRCONIUM CYCLOSILICATE 5 GM POWD.PACK PO SCH (11:20)
[2021-01-23] MEDS: NIFEdipine XL (24 HR) 30 MG TAB.ER.24 PO SCH (15:36)
[2021-01-23] MEDS: Insulin DETEMIR 100 UNIT/ML X5UNITS SUBQ SCH (19:58)
[2021-01-24] MEDS: Ipratropium/Albuterol Neb 3 ML IH SCH ×7 (00:21→22:45)
[2021-01-24] MEDS: *HR* OxyCODONE/APAP 5/325 TABLET PO PRN (04:01)
[2021-01-24] MEDS: MethylPREDNISolone 40 MG/ML VIAL IVP SCH ×2 (04:51→10:11)
[2021-01-24] MEDS: Ceftaroline Fosamil Acetate 300 MG in 0.9 % Sodium Chloride 50 ML IVPB SCH ×2 (04:51→14:44)
[2021-01-24 05:05] LABS: Basophils % 0.1 %; Hematocrit 25.6 % (37.5-50.1); Hemoglobin 8.4 g/dL (12.9-16.9); Immature Granulocytes % 1.6 % (0-4); Lymphocytes % 19.8 %; Mean Corpuscular HGB Conc 32.8 g/dL (31.6-35.5); Mean Corpuscular Hemoglobin 28.9 pg (28.0-33.3); Mean Platelet Volume 11.1 fL (9.4-12.4); Monocytes # 0.7 K/mcL (0.0-1.3); Monocytes % 4.5 %; Platelet Count 175 K/mcL (140-400); Red Blood Count 2.91 M/mcL (4.19-5.50); Red Cell Distribution Width 15.7 % (11.5-14.5); White Blood Count 14.9 K/mcL (4.3-11.1)
[2021-01-24] MEDS: *HR* Heparin 5,000 UNIT/ML VIAL SQ SCH ×2 (05:18→18:14)
[2021-01-24 05:24] LABS: Calcium 8.1 mg/dL (8.6-10.3); Potassium 5.2 mEq/L (3.5-5.1)
[2021-01-24] MEDS: SODIUM ZIRCONIUM CYCLOSILICATE 5 GM POWD.PACK PO SCH (09:00)
[2021-01-24] MEDS: Metoprolol XL (24 HR) Succ 25 MG TAB.ER.24H PO SCH ×2 (09:00→22:26)
[2021-01-24] MEDS: Nicotine 21 MG PATCH.TD24 TD SCH (09:00)
[2021-01-24] MEDS: Ranolazine 500 MG TAB.ER.12H PO SCH ×2 (09:00→22:26)
[2021-01-24] MEDS: Aspirin Enteric Coated 81 MG Tablet PO SCH (09:00)
[2021-01-24] MEDS: NIFEdipine XL (24 HR) 30 MG TAB.ER.24 PO SCH ×2 (09:00→22:57)
[2021-01-24] MEDS ORDERED: *HR* Promethazine 25 MG/ML VIAL IM STA (09:26)
[2021-01-24] MEDS: Insulin LISPRO 300 UNITS/3 ML VIAL SUBQ SCH ×4 (10:02→22:30)
[2021-01-24] MEDS: Budesonide/Formoterol 160/4.5 1 PUFF INH IH SCH ×2 (11:33→22:44)
[2021-01-24] MEDS: Isosorbide MONOnitrate (24 HR) 60 MG TAB.ER.24H PO SCH (14:28)
[2021-01-24] MEDS: Ondansetron 4 MG/2 ML VIAL IVP PRN (14:43)
[2021-01-24] MEDS: Insulin DETEMIR 100 UNIT/ML X5UNITS SUBQ SCH (22:31)
[2021-01-25] MEDS: Ceftaroline Fosamil Acetate 300 MG in 0.9 % Sodium Chloride 50 ML IVPB SCH ×2 (01:29→14:03)
[2021-01-25] MEDS: *HR* OxyCODONE/APAP 5/325 TABLET PO PRN ×3 (01:47→17:50)
[2021-01-25] MEDS: Ipratropium/Albuterol Neb 3 ML IH SCH ×2 (03:47→07:13)
[2021-01-25] MEDS: *HR* Heparin 5,000 UNIT/ML VIAL SQ SCH ×2 (06:55→17:50)
[2021-01-25] MEDS: Budesonide/Formoterol 160/4.5 1 PUFF INH IH SCH ×2 (07:13→19:43)
[2021-01-25] MEDS: Insulin LISPRO 300 UNITS/3 ML VIAL SUBQ SCH ×4 (08:23→23:16)
[2021-01-25] MEDS: Ranolazine 500 MG TAB.ER.12H PO SCH ×2 (09:22→23:12)
[2021-01-25] MEDS: Aspirin Enteric Coated 81 MG Tablet PO SCH (09:22)
[2021-01-25] MEDS: SODIUM ZIRCONIUM CYCLOSILICATE 5 GM POWD.PACK PO SCH (09:23)
[2021-01-25] MEDS: Isosorbide MONOnitrate (24 HR) 60 MG TAB.ER.24H PO SCH (09:30)
[2021-01-25] MEDS: Nicotine 21 MG PATCH.TD24 TD SCH (09:30)
[2021-01-25] MEDS: NIFEdipine XL (24 HR) 30 MG TAB.ER.24 PO SCH (09:31)
[2021-01-25] MEDS: Metoprolol XL (24 HR) Succ 25 MG TAB.ER.24H PO SCH (09:31)
[2021-01-25 13:24] LABS: Hematocrit 29.2 % (37.5-50.1); Hemoglobin 9.2 g/dL (12.9-16.9); Mean Corpuscular HGB Conc 31.5 g/dL (31.6-35.5); Mean Corpuscular Hemoglobin 28.2 pg (28.0-33.3); Mean Corpuscular Volume 89.6 fL (83.0-100.0); Mean Platelet Volume 11.2 fL (9.4-12.4); Platelet Count 192 K/mcL (140-400); Red Blood Count 3.26 M/mcL (4.19-5.50); White Blood Count 14.2 K/mcL (4.3-11.1)
[2021-01-25 14:10] LABS: Eosinophils # 0.3 K/mcL (0.0-0.6); Lymphocytes # 4.8 K/mcL (0.6-4.6); Monocytes # 1.1 K/mcL (0.0-1.3); Neutrophils # 7.4 K/mcL (1.6-8.9); Platelet Estimate Normal (Normal); Reactive Lymphocytes Present (Not Present)
[2021-01-25 15:53] LABS: Calcium 7.9 mg/dL (8.6-10.3)
[2021-01-25] MEDS: Insulin DETEMIR 100 UNIT/ML X5UNITS SUBQ SCH (23:15)
[2021-01-26 02:40] LABS: Basophils # 0.1 K/mcL (0.0-0.2); Basophils % 0.4 %; Eosinophils # 0.2 K/mcL (0.0-0.6); Hematocrit 28.8 % (37.5-50.1); Hemoglobin 9.3 g/dL (12.9-16.9); Immature Granulocytes % 2.9 % (0-4); Lymphocytes # 6.8 K/mcL (0.6-4.6); Lymphocytes % 43.1 %; Mean Corpuscular HGB Conc 32.3 g/dL (31.6-35.5); Mean Corpuscular Hemoglobin 28.5 pg (28.0-33.3); Mean Corpuscular Volume 88.3 fL (83.0-100.0); Mean Platelet Volume 11.2 fL (9.4-12.4); Monocytes # 0.8 K/mcL (0.0-1.3); Monocytes % 5.2 %; Neutrophils # 7.4 K/mcL (1.6-8.9); Platelet Count 213 K/mcL (140-400); Red Blood Count 3.26 M/mcL (4.19-5.50); Red Cell Distribution Width 15.9 % (11.5-14.5); Segmented Neutrophils % 47.4 %; White Blood Count 15.7 K/mcL (4.3-11.1)
[2021-01-26 02:59] LABS: Magnesium 1.6 mg/dL (1.6-2.6); Phosphorous 3.7 mg/dL (2.7-4.5)
[2021-01-26 03:00] LABS: Potassium 5.2 mEq/L (3.5-5.1)
[2021-01-26 03:43] LABS: Platelet Estimate Normal (Normal); Reactive Lymphocytes Present (Not Present); Smudge Cells Present (Not Present)
[2021-01-26] MEDS: *HR* OxyCODONE/APAP 5/325 TABLET PO PRN ×3 (04:04→21:46)
[2021-01-26] MEDS: Ceftaroline Fosamil Acetate 300 MG in 0.9 % Sodium Chloride 50 ML IVPB SCH ×2 (04:05→14:10)
[2021-01-26] MEDS: *HR* Heparin 5,000 UNIT/ML VIAL SQ SCH ×2 (06:57→17:08)
[2021-01-26] MEDS: Budesonide/Formoterol 160/4.5 1 PUFF INH IH SCH ×2 (07:37→22:04)
[2021-01-26] MEDS: SODIUM ZIRCONIUM CYCLOSILICATE 5 GM POWD.PACK PO SCH (08:53)
[2021-01-26] MEDS: NIFEdipine XL (24 HR) 30 MG TAB.ER.24 PO SCH (08:54)
[2021-01-26] MEDS: Isosorbide MONOnitrate (24 HR) 60 MG TAB.ER.24H PO SCH (08:54)
[2021-01-26] MEDS: Aspirin Enteric Coated 81 MG Tablet PO SCH (08:54)
[2021-01-26] MEDS: Metoprolol XL (24 HR) Succ 25 MG TAB.ER.24H PO SCH (08:54)
[2021-01-26] MEDS: Ranolazine 500 MG TAB.ER.12H PO SCH ×2 (08:54→21:46)
[2021-01-26] MEDS: Nicotine 21 MG PATCH.TD24 TD SCH (08:55)
[2021-01-26] MEDS: Insulin LISPRO 300 UNITS/3 ML VIAL SUBQ SCH ×4 (08:56→21:47)
[2021-01-26] MEDS: Lactobacillus 1 EACH CAP.SPRINK PO SCH (21:46)
[2021-01-26] MEDS: Insulin DETEMIR 100 UNIT/ML X5UNITS SUBQ SCH (21:47)
[2021-01-27] MEDS: Ceftaroline Fosamil Acetate 300 MG in 0.9 % Sodium Chloride 50 ML IVPB SCH ×2 (02:34→14:09)
[2021-01-27 03:19] LABS: Hematocrit 25.6 % (37.5-50.1); Hemoglobin 8.3 g/dL (12.9-16.9); Mean Corpuscular HGB Conc 32.4 g/dL (31.6-35.5); Mean Corpuscular Hemoglobin 28.7 pg (28.0-33.3); Mean Corpuscular Volume 88.6 fL (83.0-100.0); Platelet Count 203 K/mcL (140-400); Red Blood Count 2.89 M/mcL (4.19-5.50); Red Cell Distribution Width 15.9 % (11.5-14.5); White Blood Count 15.2 K/mcL (4.3-11.1)
[2021-01-27 03:40] LABS: Calcium 7.8 mg/dL (8.6-10.3); Magnesium 1.4 mg/dL (1.6-2.6); Phosphorous 3.8 mg/dL (2.7-4.5); Potassium 5.1 mEq/L (3.5-5.1)
[2021-01-27] MEDS: *HR* Heparin 5,000 UNIT/ML VIAL SQ SCH ×2 (06:22→16:36)
[2021-01-27] MEDS: Budesonide/Formoterol 160/4.5 1 PUFF INH IH SCH ×2 (07:22→20:11)
[2021-01-27] MEDS: Isosorbide MONOnitrate (24 HR) 60 MG TAB.ER.24H PO SCH (08:02)
[2021-01-27] MEDS: Metoprolol XL (24 HR) Succ 25 MG TAB.ER.24H PO SCH (08:02)
[2021-01-27] MEDS: Aspirin Enteric Coated 81 MG Tablet PO SCH (08:02)
[2021-01-27] MEDS: Ranolazine 500 MG TAB.ER.12H PO SCH ×2 (08:03→20:10)
[2021-01-27] MEDS: SODIUM ZIRCONIUM CYCLOSILICATE 5 GM POWD.PACK PO SCH (08:03)
[2021-01-27] MEDS: Nicotine 21 MG PATCH.TD24 TD SCH (08:03)
[2021-01-27] MEDS: Insulin LISPRO 300 UNITS/3 ML VIAL SUBQ SCH ×4 (08:03→20:21)
[2021-01-27] MEDS: NIFEdipine XL (24 HR) 30 MG TAB.ER.24 PO SCH (08:03)
[2021-01-27] MEDS: Lactobacillus 1 EACH CAP.SPRINK PO SCH ×2 (08:03→20:10)
[2021-01-27] MEDS: *HR* OxyCODONE/APAP 5/325 TABLET PO PRN ×2 (08:04→20:09)
[2021-01-27] MEDS: Insulin DETEMIR 100 UNIT/ML X5UNITS SUBQ SCH (20:20)
[2021-01-28] MEDS: Ceftaroline Fosamil Acetate 300 MG in 0.9 % Sodium Chloride 50 ML IVPB SCH ×2 (02:07→15:31)
[2021-01-28] MEDS: *HR* OxyCODONE/APAP 5/325 TABLET PO PRN ×3 (04:20→21:43)
[2021-01-28] MEDS: *HR* Heparin 5,000 UNIT/ML VIAL SQ SCH ×2 (04:20→15:30)
[2021-01-28 05:05] LABS: Hematocrit 24.9 % (37.5-50.1); Hemoglobin 7.9 g/dL (12.9-16.9); Mean Corpuscular HGB Conc 31.7 g/dL (31.6-35.5); Mean Corpuscular Hemoglobin 28.1 pg (28.0-33.3); Mean Corpuscular Volume 88.6 fL (83.0-100.0); Mean Platelet Volume 10.8 fL (9.4-12.4); Platelet Count 216 K/mcL (140-400); Red Blood Count 2.81 M/mcL (4.19-5.50); Red Cell Distribution Width 16.1 % (11.5-14.5); White Blood Count 15.7 K/mcL (4.3-11.1)
[2021-01-28 05:22] LABS: Calcium 7.9 mg/dL (8.6-10.3); Magnesium 1.3 mg/dL (1.6-2.6); Phosphorous 3.7 mg/dL (2.7-4.5); Potassium 5.2 mEq/L (3.5-5.1)
[2021-01-28] MEDS: Insulin LISPRO 300 UNITS/3 ML VIAL SUBQ SCH ×4 (07:29→21:20)
[2021-01-28] MEDS: Budesonide/Formoterol 160/4.5 1 PUFF INH IH SCH ×2 (07:45→21:41)
[2021-01-28] MEDS: Metoprolol XL (24 HR) Succ 25 MG TAB.ER.24H PO SCH (08:37)
[2021-01-28] MEDS: Isosorbide MONOnitrate (24 HR) 60 MG TAB.ER.24H PO SCH (08:37)
[2021-01-28] MEDS: Ranolazine 500 MG TAB.ER.12H PO SCH ×2 (08:37→21:43)
[2021-01-28] MEDS: Aspirin Enteric Coated 81 MG Tablet PO SCH (08:37)
[2021-01-28] MEDS: Lactobacillus 1 EACH CAP.SPRINK PO SCH ×2 (08:37→21:43)
[2021-01-28] MEDS: NIFEdipine XL (24 HR) 30 MG TAB.ER.24 PO SCH (08:37)
[2021-01-28] MEDS: Ondansetron 4 MG/2 ML VIAL IVP PRN (08:46)
[2021-01-28] MEDS: SODIUM ZIRCONIUM CYCLOSILICATE 5 GM POWD.PACK PO SCH (08:50)
[2021-01-28] MEDS ORDERED: Nicotine 2 MG GUM BC PRN (10:52)
[2021-01-28] MEDS ORDERED: Magnesium Sulfate 1 GM/102 ML PIGGYBACK IVPB ONE (14:49)
[2021-01-28] MEDS: Nicotine 21 MG PATCH.TD24 TD SCH (16:34)
[2021-01-29] MEDS: Ceftaroline Fosamil Acetate 300 MG in 0.9 % Sodium Chloride 50 ML IVPB SCH ×2 (01:44→14:03)
[2021-01-29] MEDS: *HR* Heparin 5,000 UNIT/ML VIAL SQ SCH ×2 (05:25→17:44)
[2021-01-29] MEDS: Insulin LISPRO 300 UNITS/3 ML VIAL SUBQ SCH ×4 (07:44→20:20)
[2021-01-29] MEDS: Nicotine 21 MG PATCH.TD24 TD SCH (08:02)
[2021-01-29] MEDS: SODIUM ZIRCONIUM CYCLOSILICATE 5 GM POWD.PACK PO SCH ×2 (08:02→11:02)
[2021-01-29] MEDS: NIFEdipine XL (24 HR) 30 MG TAB.ER.24 PO SCH (08:03)
[2021-01-29] MEDS: Ranolazine 500 MG TAB.ER.12H PO SCH ×2 (08:03→20:27)
[2021-01-29] MEDS: Aspirin Enteric Coated 81 MG Tablet PO SCH (08:03)
[2021-01-29] MEDS: Lactobacillus 1 EACH CAP.SPRINK PO SCH ×2 (08:04→20:27)
[2021-01-29] MEDS: Metoprolol XL (24 HR) Succ 25 MG TAB.ER.24H PO SCH (08:04)
[2021-01-29] MEDS: Isosorbide MONOnitrate (24 HR) 60 MG TAB.ER.24H PO SCH (08:04)
[2021-01-29] MEDS: *HR* OxyCODONE/APAP 5/325 TABLET PO PRN ×2 (08:07→23:59)
[2021-01-29] MEDS: Budesonide/Formoterol 160/4.5 1 PUFF INH IH SCH ×2 (09:58→19:52)
[2021-01-29 10:23] LABS: Basophils % 0.3 %; Eosinophils # 0.1 K/mcL (0.0-0.6); Eosinophils % 0.8 %; Hematocrit 25.9 % (37.5-50.1); Hemoglobin 8.2 g/dL (12.9-16.9); Immature Granulocytes % 2.7 % (0-4); Lymphocytes # 4.2 K/mcL (0.6-4.6); Lymphocytes % 28.3 %; Mean Corpuscular HGB Conc 31.7 g/dL (31.6-35.5); Mean Corpuscular Hemoglobin 28.6 pg (28.0-33.3); Mean Corpuscular Volume 90.2 fL (83.0-100.0); Mean Platelet Volume 11.1 fL (9.4-12.4); Monocytes # 0.8 K/mcL (0.0-1.3); Monocytes % 5.4 %; Neutrophils # 9.3 K/mcL (1.6-8.9); Platelet Count 229 K/mcL (140-400); Red Blood Count 2.87 M/mcL (4.19-5.50); Red Cell Distribution Width 16.2 % (11.5-14.5); Segmented Neutrophils % 62.5 %; White Blood Count 14.9 K/mcL (4.3-11.1)
[2021-01-29 10:43] LABS: Calcium 8.6 mg/dL (8.6-10.3); Potassium 5.8 mEq/L (3.5-5.1)
[2021-01-29] MEDS: 0.9 % Sodium Chloride 1,000 ML IVC SCH (15:19)
[2021-01-30] MEDS: Ceftaroline Fosamil Acetate 300 MG in 0.9 % Sodium Chloride 50 ML IVPB SCH ×2 (01:58→15:09)
[2021-01-30 02:20] LABS: Basophils % 0.3 %; Eosinophils # 0.1 K/mcL (0.0-0.6); Eosinophils % 0.9 %; Hematocrit 25.3 % (37.5-50.1); Hemoglobin 7.8 g/dL (12.9-16.9); Immature Granulocytes % 2.1 % (0-4); Lymphocytes # 4.5 K/mcL (0.6-4.6); Lymphocytes % 31.2 %; Mean Corpuscular HGB Conc 30.8 g/dL (31.6-35.5); Mean Corpuscular Hemoglobin 28.3 pg (28.0-33.3); Mean Corpuscular Volume 91.7 fL (83.0-100.0); Mean Platelet Volume 11.2 fL (9.4-12.4); Monocytes # 0.8 K/mcL (0.0-1.3); Monocytes % 5.9 %; Neutrophils # 8.5 K/mcL (1.6-8.9); Platelet Count 246 K/mcL (140-400); Red Blood Count 2.76 M/mcL (4.19-5.50); Red Cell Distribution Width 16.4 % (11.5-14.5); Segmented Neutrophils % 59.6 %; White Blood Count 14.3 K/mcL (4.3-11.1)
[2021-01-30 02:36] LABS: Calcium 8.3 mg/dL (8.6-10.3); Potassium 5.4 mEq/L (3.5-5.1)
[2021-01-30] MEDS: 0.9 % Sodium Chloride 1,000 ML IVC SCH ×2 (04:43→17:44)
[2021-01-30] MEDS: *HR* Heparin 5,000 UNIT/ML VIAL SQ SCH ×2 (04:43→17:44)
[2021-01-30] MEDS: *HR* OxyCODONE/APAP 5/325 TABLET PO PRN ×2 (07:46→15:46)
[2021-01-30] MEDS: Budesonide/Formoterol 160/4.5 1 PUFF INH IH SCH ×2 (07:50→19:45)
[2021-01-30] MEDS: Insulin LISPRO 300 UNITS/3 ML VIAL SUBQ SCH ×4 (08:05→22:49)
[2021-01-30] MEDS: Nicotine 21 MG PATCH.TD24 TD SCH (08:09)
[2021-01-30] MEDS: Isosorbide MONOnitrate (24 HR) 60 MG TAB.ER.24H PO SCH (09:50)
[2021-01-30] MEDS: Lactobacillus 1 EACH CAP.SPRINK PO SCH ×2 (09:50→20:37)
[2021-01-30] MEDS: Aspirin Enteric Coated 81 MG Tablet PO SCH (09:50)
[2021-01-30] MEDS: Metoprolol XL (24 HR) Succ 25 MG TAB.ER.24H PO SCH (09:51)
[2021-01-30] MEDS: Ranolazine 500 MG TAB.ER.12H PO SCH ×2 (09:51→20:37)
[2021-01-30] MEDS: NIFEdipine XL (24 HR) 30 MG TAB.ER.24 PO SCH (10:52)
[2021-01-30] MEDS: SODIUM ZIRCONIUM CYCLOSILICATE 5 GM POWD.PACK PO SCH (10:52)
[2021-01-31] MEDS: *HR* OxyCODONE/APAP 5/325 TABLET PO PRN ×3 (00:01→16:54)
[2021-01-31] MEDS: Ceftaroline Fosamil Acetate 300 MG in 0.9 % Sodium Chloride 50 ML IVPB SCH ×2 (02:58→13:41)
[2021-01-31 03:35] LABS: Basophils % 0.1 %; Eosinophils # 0.1 K/mcL (0.0-0.6); Eosinophils % 0.9 %; Hematocrit 26.9 % (37.5-50.1); Hemoglobin 8.5 g/dL (12.9-16.9); Immature Granulocytes % 1.5 % (0-4); Lymphocytes % 36.9 %; Mean Corpuscular HGB Conc 31.6 g/dL (31.6-35.5); Mean Corpuscular Volume 91.8 fL (83.0-100.0); Mean Platelet Volume 10.7 fL (9.4-12.4); Monocytes # 0.9 K/mcL (0.0-1.3); Monocytes % 6.7 %; Neutrophils # 7.3 K/mcL (1.6-8.9); Platelet Count 247 K/mcL (140-400); Red Blood Count 2.93 M/mcL (4.19-5.50); Red Cell Distribution Width 16.3 % (11.5-14.5); Segmented Neutrophils % 53.9 %; White Blood Count 13.6 K/mcL (4.3-11.1)
[2021-01-31 03:52] LABS: Calcium 8.5 mg/dL (8.6-10.3); Potassium 4.9 mEq/L (3.5-5.1)
[2021-01-31 04:09] LABS: Platelet Estimate Normal (Normal)
[2021-01-31] MEDS: *HR* Heparin 5,000 UNIT/ML VIAL SQ SCH ×2 (06:18→16:54)
[2021-01-31] MEDS: Insulin LISPRO 300 UNITS/3 ML VIAL SUBQ SCH ×4 (07:22→21:00)
[2021-01-31] MEDS: Budesonide/Formoterol 160/4.5 1 PUFF INH IH SCH ×2 (07:59→21:34)
[2021-01-31] MEDS: Aspirin Enteric Coated 81 MG Tablet PO SCH (08:49)
[2021-01-31] MEDS: Lactobacillus 1 EACH CAP.SPRINK PO SCH ×2 (08:49→21:00)
[2021-01-31] MEDS: Isosorbide MONOnitrate (24 HR) 60 MG TAB.ER.24H PO SCH (08:50)
[2021-01-31] MEDS: NIFEdipine XL (24 HR) 30 MG TAB.ER.24 PO SCH (08:50)
[2021-01-31] MEDS: Metoprolol XL (24 HR) Succ 25 MG TAB.ER.24H PO SCH (08:50)
[2021-01-31] MEDS: Ranolazine 500 MG TAB.ER.12H PO SCH ×2 (08:50→20:21)
[2021-01-31] MEDS: 0.9 % Sodium Chloride 1,000 ML IVC SCH ×2 (08:51→23:30)
[2021-01-31] MEDS: SODIUM ZIRCONIUM CYCLOSILICATE 5 GM POWD.PACK PO SCH (08:58)
[2021-01-31] MEDS: Nicotine 21 MG PATCH.TD24 TD SCH (08:58)
[2021-02-01] MEDS: Ceftaroline Fosamil Acetate 300 MG in 0.9 % Sodium Chloride 50 ML IVPB SCH ×2 (02:30→14:42)
[2021-02-01] MEDS: *HR* Heparin 5,000 UNIT/ML VIAL SQ SCH ×2 (05:47→17:30)
[2021-02-01] MEDS: Budesonide/Formoterol 160/4.5 1 PUFF INH IH SCH ×2 (07:22→20:43)
[2021-02-01 08:46] LABS: Basophils % 0.2 %; Eosinophils # 0.1 K/mcL (0.0-0.6); Eosinophils % 0.4 %; Hematocrit 25.5 % (37.5-50.1); Hemoglobin 7.8 g/dL (12.9-16.9); Lymphocytes # 3.5 K/mcL (0.6-4.6); Lymphocytes % 28.6 %; Mean Corpuscular HGB Conc 30.6 g/dL (31.6-35.5); Mean Corpuscular Hemoglobin 28.5 pg (28.0-33.3); Mean Corpuscular Volume 93.1 fL (83.0-100.0); Monocytes # 0.6 K/mcL (0.0-1.3); Monocytes % 4.8 %; Neutrophils # 7.9 K/mcL (1.6-8.9); Platelet Count 236 K/mcL (140-400); Red Blood Count 2.74 M/mcL (4.19-5.50); Red Cell Distribution Width 16.5 % (11.5-14.5); White Blood Count 12.1 K/mcL (4.3-11.1)
[2021-02-01] MEDS: SODIUM ZIRCONIUM CYCLOSILICATE 5 GM POWD.PACK PO SCH (09:04)
[2021-02-01] MEDS: Aspirin Enteric Coated 81 MG Tablet PO SCH (09:05)
[2021-02-01] MEDS: Isosorbide MONOnitrate (24 HR) 60 MG TAB.ER.24H PO SCH (09:05)
[2021-02-01] MEDS: Lactobacillus 1 EACH CAP.SPRINK PO SCH ×2 (09:05→20:47)
[2021-02-01] MEDS: Metoprolol XL (24 HR) Succ 25 MG TAB.ER.24H PO SCH (09:05)
[2021-02-01] MEDS: Ranolazine 500 MG TAB.ER.12H PO SCH ×2 (09:05→20:47)
[2021-02-01] MEDS: *HR* OxyCODONE/APAP 5/325 TABLET PO PRN ×2 (09:06→17:30)
[2021-02-01] MEDS: Insulin LISPRO 300 UNITS/3 ML VIAL SUBQ SCH ×4 (09:06→20:00)
[2021-02-01] MEDS: Nicotine 21 MG PATCH.TD24 TD SCH (09:06)
[2021-02-01] MEDS: NIFEdipine XL (24 HR) 30 MG TAB.ER.24 PO SCH (09:06)
[2021-02-01 09:08] LABS: Calcium 8.6 mg/dL (8.6-10.3); Magnesium 1.6 mg/dL (1.6-2.6); Phosphorous 5.3 mg/dL (2.7-4.5); Potassium 5.5 mEq/L (3.5-5.1)
[2021-02-01] MEDS: 0.9 % Sodium Chloride 1,000 ML IVC SCH (12:20)
[2021-02-01] MEDS: Ondansetron 4 MG/2 ML VIAL IVP PRN (14:41)
[2021-02-02] MEDS: Ceftaroline Fosamil Acetate 300 MG in 0.9 % Sodium Chloride 50 ML IVPB SCH ×2 (01:04→14:24)
[2021-02-02] MEDS: 0.9 % Sodium Chloride 1,000 ML IVC SCH ×2 (01:07→14:22)
[2021-02-02] MEDS: *HR* Heparin 5,000 UNIT/ML VIAL SQ SCH ×2 (05:37→17:36)
[2021-02-02] MEDS: Budesonide/Formoterol 160/4.5 1 PUFF INH IH SCH ×2 (07:28→19:51)
[2021-02-02 10:23] LABS: Basophils % 0.2 %; Eosinophils # 0.1 K/mcL (0.0-0.6); Eosinophils % 0.5 %; Hematocrit 24.7 % (37.5-50.1); Hemoglobin 7.6 g/dL (12.9-16.9); Immature Granulocytes % 0.6 % (0-4); Lymphocytes # 3.5 K/mcL (0.6-4.6); Lymphocytes % 31.3 %; Mean Corpuscular HGB Conc 30.8 g/dL (31.6-35.5); Mean Corpuscular Hemoglobin 28.6 pg (28.0-33.3); Mean Corpuscular Volume 92.9 fL (83.0-100.0); Mean Platelet Volume 10.8 fL (9.4-12.4); Monocytes # 0.6 K/mcL (0.0-1.3); Monocytes % 5.4 %; Platelet Count 219 K/mcL (140-400); Red Blood Count 2.66 M/mcL (4.19-5.50); Red Cell Distribution Width 16.4 % (11.5-14.5); White Blood Count 11.2 K/mcL (4.3-11.1)
[2021-02-02 10:28] LABS: Neutrophils # 6.9 K/mcL (1.6-8.9)
[2021-02-02] MEDS: Ranolazine 500 MG TAB.ER.12H PO SCH ×2 (10:32→20:33)
[2021-02-02] MEDS: Lactobacillus 1 EACH CAP.SPRINK PO SCH ×2 (10:32→20:33)
[2021-02-02] MEDS: SODIUM ZIRCONIUM CYCLOSILICATE 5 GM POWD.PACK PO SCH (10:32)
[2021-02-02 10:33] LABS: Magnesium 1.5 mg/dL (1.6-2.6); Phosphorous 4.9 mg/dL (2.7-4.5)
[2021-02-02] MEDS: Isosorbide MONOnitrate (24 HR) 60 MG TAB.ER.24H PO SCH (10:33)
[2021-02-02] MEDS: Nicotine 21 MG PATCH.TD24 TD SCH (10:33)
[2021-02-02] MEDS: Metoprolol XL (24 HR) Succ 25 MG TAB.ER.24H PO SCH (10:33)
[2021-02-02] MEDS: *HR* OxyCODONE/APAP 5/325 TABLET PO PRN ×2 (10:33→17:39)
[2021-02-02] MEDS: Aspirin Enteric Coated 81 MG Tablet PO SCH (10:33)
[2021-02-02] MEDS: NIFEdipine XL (24 HR) 30 MG TAB.ER.24 PO SCH (10:33)
[2021-02-02] MEDS: Insulin LISPRO 300 UNITS/3 ML VIAL SUBQ SCH ×4 (10:34→17:44)
[2021-02-02 10:53] LABS: Calcium 8.5 mg/dL (8.6-10.3); Potassium 5.4 mEq/L (3.5-5.1)
[2021-02-02 16:24] LABS: Platelet Estimate Normal (Normal)
[2021-02-02 18:53] LABS: Adenovirus Not Detected (Not Detect); Bordetella Pertussis Not Detected (Not Detect); Chlamydophila pneumoniae Not Detected (Not Detect); Coronavirus 229E Not Detected (Not Detect); Coronavirus HKU1 Not Detected (Not Detect); Coronavirus NL63 Not Detected (Not Detect); Coronavirus OC43 Not Detected (Not Detect); Human Metapneumovirus Not Detected (Not Detect); Human Rhinovirus/Enterovirus Not Detected (Not Detect); Influenza A Subtype 2009 H1 Not Detected (Not Detect); Influenza B Not Detected (Not Detect); Mycoplasma pneumoniae Not Detected (Not Detect); Parainfluenza Virus 1 Not Detected (Not Detect); Parainfluenza Virus 2 Not Detected (Not Detect); Parainfluenza Virus 3 Not Detected (Not Detect); Parainfluenza Virus 4 Not Detected (Not Detect); Respiratory Syncytial Virus Not Detected (Not Detect); SARS-CoV-2 Not Detected (Not Detect)
[2021-02-03] MEDS: *HR* OxyCODONE/APAP 5/325 TABLET PO PRN (02:17)
[2021-02-03] MEDS: 0.9 % Sodium Chloride 1,000 ML IVC SCH ×2 (02:19→14:16)
[2021-02-03] MEDS: Ceftaroline Fosamil Acetate 300 MG in 0.9 % Sodium Chloride 50 ML IVPB SCH ×2 (02:19→13:05)
[2021-02-03] MEDS: Ipratropium/Albuterol Neb 3 ML IH PRN ×2 (03:34→15:26)
[2021-02-03] MEDS ORDERED: Ipratropium/Albuterol Neb 3 ML IH ONE (03:53)
[2021-02-03] MEDS: Ipratropium/Albuterol Neb 3 ML IH SCH ×6 (04:01→23:46)
[2021-02-03 04:53] LABS: Basophils % 0.1 %; Eosinophils # 0.1 K/mcL (0.0-0.6); Eosinophils % 0.5 %; Hematocrit 22.5 % (37.5-50.1); Hemoglobin 6.9 g/dL (12.9-16.9); Immature Granulocytes % 0.7 % (0-4); Mean Corpuscular HGB Conc 30.7 g/dL (31.6-35.5); Mean Corpuscular Hemoglobin 28.3 pg (28.0-33.3); Mean Corpuscular Volume 92.2 fL (83.0-100.0); Mean Platelet Volume 10.7 fL (9.4-12.4); Monocytes # 0.6 K/mcL (0.0-1.3); Monocytes % 5.4 %; Neutrophils # 6.8 K/mcL (1.6-8.9); Platelet Count 184 K/mcL (140-400); Red Blood Count 2.44 M/mcL (4.19-5.50); Red Cell Distribution Width 16.4 % (11.5-14.5); Segmented Neutrophils % 57.3 %; White Blood Count 11.8 K/mcL (4.3-11.1)
[2021-02-03 04:58] LABS: Lymphocytes # 4.3 K/mcL (0.6-4.6)
[2021-02-03 05:12] LABS: Potassium 5.5 mEq/L (3.5-5.1)
[2021-02-03 05:44] LABS: Hypochromasia Present (Not Present); Platelet Estimate Normal (Normal); Reactive Lymphocytes Present (Not Present)
[2021-02-03] MEDS: *HR* Heparin 5,000 UNIT/ML VIAL SQ SCH ×2 (05:48→13:45)
[2021-02-03] MEDS: Insulin LISPRO 300 UNITS/3 ML VIAL SUBQ SCH ×4 (07:42→21:22)
[2021-02-03] MEDS: NIFEdipine XL (24 HR) 30 MG TAB.ER.24 PO SCH (07:58)
[2021-02-03] MEDS: Isosorbide MONOnitrate (24 HR) 60 MG TAB.ER.24H PO SCH (07:58)
[2021-02-03] MEDS: Metoprolol XL (24 HR) Succ 25 MG TAB.ER.24H PO SCH (07:58)
[2021-02-03] MEDS: Nicotine 21 MG PATCH.TD24 TD SCH (08:05)
[2021-02-03] MEDS: Aspirin Enteric Coated 81 MG Tablet PO SCH (08:10)
[2021-02-03] MEDS: Ranolazine 500 MG TAB.ER.12H PO SCH ×2 (08:10→20:53)
[2021-02-03] MEDS: SODIUM ZIRCONIUM CYCLOSILICATE 5 GM POWD.PACK PO SCH (08:10)
[2021-02-03] MEDS: Lactobacillus 1 EACH CAP.SPRINK PO SCH ×2 (08:10→20:53)
[2021-02-03] MEDS: Budesonide/Formoterol 160/4.5 1 PUFF INH IH SCH ×2 (08:29→20:26)
[2021-02-03] MEDS ORDERED: 0.9 % Sodium Chloride 250 ML ONE (10:11)
[2021-02-03] MEDS: *HR* HYDROmorphone (PF) 1 MG/ML SYRINGE IVP PRN ×2 (13:05→20:53)
[2021-02-03] MEDS: Sodium Bicarbonate 75 MEQ in 0.45 % Sodium Chloride 1,000 ML IVC SCH (14:52)
[2021-02-03 22:42] LABS: Hematocrit 24.8 % (37.5-50.1); Hemoglobin 7.8 g/dL (12.9-16.9)
[2021-02-03 22:49] LABS: INR 1.3; Prothrombin Time 14.5 Seconds (9.4-12.1)
[2021-02-04] MEDS: *HR* HYDROmorphone (PF) 1 MG/ML SYRINGE IVP PRN ×2 (01:30→05:42)
[2021-02-04] MEDS: Ceftaroline Fosamil Acetate 300 MG in 0.9 % Sodium Chloride 50 ML IVPB SCH ×2 (01:46→14:26)
[2021-02-04 01:52] LABS: Hematocrit 23.8 % (37.5-50.1); Hemoglobin 7.5 g/dL (12.9-16.9); Mean Corpuscular HGB Conc 31.5 g/dL (31.6-35.5); Mean Corpuscular Hemoglobin 28.5 pg (28.0-33.3); Mean Corpuscular Volume 90.5 fL (83.0-100.0); Mean Platelet Volume 10.8 fL (9.4-12.4); Platelet Count 195 K/mcL (140-400); Red Blood Count 2.63 M/mcL (4.19-5.50); Red Cell Distribution Width 18.3 % (11.5-14.5); White Blood Count 11.4 K/mcL (4.3-11.1)
[2021-02-04 02:11] LABS: Calcium 8.2 mg/dL (8.6-10.3); Magnesium 1.4 mg/dL (1.6-2.6); Potassium 5.4 mEq/L (3.5-5.1)
[2021-02-04] MEDS: Ipratropium/Albuterol Neb 3 ML IH SCH ×5 (04:19→20:15)
[2021-02-04] MEDS: Sodium Bicarbonate 75 MEQ in 0.45 % Sodium Chloride 1,000 ML IVC SCH ×2 (04:27→14:25)
[2021-02-04] MEDS: *HR* Heparin 5,000 UNIT/ML VIAL SQ SCH ×2 (05:19→17:20)
[2021-02-04] MEDS ORDERED: Lidocaine -MPF 2% 2 ML VIAL ONE (07:08)
[2021-02-04] MEDS ORDERED: Lidocaine -MPF 4% 5 ML AMPUL ONE (07:08)
[2021-02-04] MEDS ORDERED: *HR* Propofol 200 MG/20 ML VIAL IVP ONE (07:08)
[2021-02-04] MEDS ORDERED: *HR* FentaNYL (PF) 100 MCG/2 ML VIAL ONE ×2 (07:08→09:15)
[2021-02-04] MEDS ORDERED: *HR* Rocuronium Bromide 50 MG/5 ML VIAL ONE (07:08)
[2021-02-04] MEDS ORDERED: Ondansetron 4 MG/2 ML VIAL ONE (07:08)
[2021-02-04] MEDS ORDERED: *HR* Succinylcholine 200 MG/10 ML VIAL IVP ONE (07:08)
[2021-02-04] MEDS ORDERED: 0.9 % Sodium Chloride 250 ML IVC SCH (07:15)
[2021-02-04] MEDS ORDERED: EPHEDrine 50 MG/ML VIAL ONE (07:15)
[2021-02-04] MEDS ORDERED: *HR* Midazolam HCl 2 MG/2 ML VIAL ONE (07:27)
[2021-02-04] MEDS ORDERED: Ondansetron 4 MG/2 ML VIAL IVP PRN ×2 (07:32→09:54)
[2021-02-04] MEDS ORDERED: *HR* FentaNYL (PF) 100 MCG/2 ML VIAL IVP PRN ×2 (07:32→09:54)
[2021-02-04] MEDS ORDERED: Naloxone 0.4 MG/ML INJ IVP PRN (07:32)
[2021-02-04] MEDS ORDERED: Nitroglycerin 0.4 MG TAB.SUBL SL PRN ×2 (07:32→09:54)
[2021-02-04] MEDS ORDERED: Albuterol 2.5 MG/3 ML NEBULIZER IH PRN ×2 (07:32→09:54)
[2021-02-04] MEDS ORDERED: Heparin 1,000 UNITS/500 mL 500 ML ONE (07:35)
[2021-02-04 08:06] LABS: ABG Base Excess -3 mEq/L (-2 to 3); ABG Chloride 113 mEq/L (98-107); ABG Glucose 108 mg/dL (60-95); ABG HCO3 23 mEq/L (21-27); ABG Ionized Calcium 1.28 mmol/L (1.15-1.35); ABG Oxygen Saturation 98 % (95-98); ABG PCO2 42 mmHg (35-45); ABG PH 7.34 pH Units (7.32-7.45); ABG PO2 117 mmHg (85-104); ABG TCO2 24 mEq/L (20-26)
[2021-02-04] MEDS ORDERED: Sugammadex Sodium 200 MG/2 ML VIAL IV ONE (09:15)
[2021-02-04] MEDS ORDERED: Nicotine 2 MG GUM BC PRN (09:54)
[2021-02-04] MEDS ORDERED: D5% in Water 1,000 ML IVC PRN (09:54)
[2021-02-04] MEDS ORDERED: Dextrose Gel 15 GM/37.5 ML TUBE PO PRN ×2 (09:54)
[2021-02-04] MEDS ORDERED: Perflutren Lipid Microsphere 1.3 ML in 0.9 % Sodium Chloride 8.7 ML IVP PRN (09:54)
[2021-02-04] MEDS ORDERED: *HR* OxyCODONE/APAP 5/325 TABLET PO PRN (09:54)
[2021-02-04] MEDS ORDERED: *HR* Dextrose 50 % in Water (Vial) 50 ML VIAL IVP PRN (09:54)
[2021-02-04] MEDS: SODIUM ZIRCONIUM CYCLOSILICATE 5 GM POWD.PACK PO SCH ×2 (09:59→14:53)
[2021-02-04] MEDS: Lactobacillus 1 EACH CAP.SPRINK PO SCH ×2 (09:59→19:56)
[2021-02-04] MEDS: Metoprolol XL (24 HR) Succ 25 MG TAB.ER.24H PO SCH (09:59)
[2021-02-04] MEDS: Ranolazine 500 MG TAB.ER.12H PO SCH ×2 (09:59→19:56)
[2021-02-04] MEDS: NIFEdipine XL (24 HR) 30 MG TAB.ER.24 PO SCH ×2 (09:59→12:40)
[2021-02-04] MEDS: Aspirin Enteric Coated 81 MG Tablet PO SCH (09:59)
[2021-02-04] MEDS: Isosorbide MONOnitrate (24 HR) 60 MG TAB.ER.24H PO SCH ×2 (09:59→12:40)
[2021-02-04] MEDS: Insulin LISPRO 300 UNITS/3 ML VIAL SUBQ SCH ×4 (09:59→19:57)
[2021-02-04] MEDS: Nicotine 21 MG PATCH.TD24 TD SCH (10:04)
[2021-02-04] MEDS: Budesonide/Formoterol 160/4.5 1 PUFF INH IH SCH ×2 (10:27→20:16)
[2021-02-04] MEDS ORDERED: SODIUM ZIRCONIUM CYCLOSILICATE 5 GM POWD.PACK PO ONE (12:52)
[2021-02-04] MEDS: *HR* OxyCODONE/APAP 5/325 TABLET PO PRN ×3 (14:53→23:56)
[2021-02-05] MEDS: Ipratropium/Albuterol Neb 3 ML IH SCH ×7 (00:06→23:11)
[2021-02-05] MEDS: Ceftaroline Fosamil Acetate 300 MG in 0.9 % Sodium Chloride 50 ML IVPB SCH ×2 (02:34→14:08)
[2021-02-05] MEDS: *HR* Heparin 5,000 UNIT/ML VIAL SQ SCH ×2 (05:28→17:28)
[2021-02-05] MEDS: *HR* OxyCODONE/APAP 5/325 TABLET PO PRN ×2 (05:55→10:45)
[2021-02-05] MEDS: SODIUM ZIRCONIUM CYCLOSILICATE 5 GM POWD.PACK PO SCH (07:39)
[2021-02-05] MEDS: Metoprolol XL (24 HR) Succ 25 MG TAB.ER.24H PO SCH (07:41)
[2021-02-05] MEDS: NIFEdipine XL (24 HR) 30 MG TAB.ER.24 PO SCH (07:41)
[2021-02-05] MEDS: Ranolazine 500 MG TAB.ER.12H PO SCH ×2 (07:41→21:21)
[2021-02-05] MEDS: Lactobacillus 1 EACH CAP.SPRINK PO SCH ×2 (07:41→21:20)
[2021-02-05] MEDS: Aspirin Enteric Coated 81 MG Tablet PO SCH (07:41)
[2021-02-05] MEDS: Nicotine 21 MG PATCH.TD24 TD SCH (07:42)
[2021-02-05] MEDS: Isosorbide MONOnitrate (24 HR) 60 MG TAB.ER.24H PO SCH (07:42)
[2021-02-05] MEDS: Insulin LISPRO 300 UNITS/3 ML VIAL SUBQ SCH ×4 (07:44→21:36)
[2021-02-05] MEDS: Sodium Bicarbonate 75 MEQ in 0.45 % Sodium Chloride 1,000 ML IVC SCH (07:45)
[2021-02-05] MEDS: Budesonide/Formoterol 160/4.5 1 PUFF INH IH SCH ×2 (07:57→19:49)
[2021-02-05 08:18] LABS: Basophils % 0.1 %; Hematocrit 26.6 % (37.5-50.1); Hemoglobin 8.4 g/dL (12.9-16.9); Immature Granulocytes % 0.6 % (0-4); Lymphocytes # 2.4 K/mcL (0.6-4.6); Lymphocytes % 19.1 %; Mean Corpuscular HGB Conc 31.6 g/dL (31.6-35.5); Mean Corpuscular Hemoglobin 28.2 pg (28.0-33.3); Mean Corpuscular Volume 89.3 fL (83.0-100.0); Mean Platelet Volume 10.5 fL (9.4-12.4); Monocytes # 0.5 K/mcL (0.0-1.3); Monocytes % 3.7 %; Neutrophils # 9.6 K/mcL (1.6-8.9); Platelet Count 179 K/mcL (140-400); Red Blood Count 2.98 M/mcL (4.19-5.50); Segmented Neutrophils % 76.5 %; White Blood Count 12.6 K/mcL (4.3-11.1)
[2021-02-05 08:37] LABS: Potassium 5.3 mEq/L (3.5-5.1)
[2021-02-05] MEDS ORDERED: Isosorbide MONOnitrate (24 HR) 60 MG TAB.ER.24H PO SCH (09:00)
[2021-02-05] MEDS ORDERED: SODIUM ZIRCONIUM CYCLOSILICATE 5 GM POWD.PACK PO SCH (09:00)
[2021-02-05] MEDS ORDERED: NIFEdipine XL (24 HR) 30 MG TAB.ER.24 PO SCH (09:00)
[2021-02-05] MEDS: *HR* OxyCODONE/APAP 7.5/325 TABLET PO PRN ×2 (14:08→21:21)
[2021-02-05] MEDS ORDERED: *HR* HYDROmorphone (PF) 1 MG/ML SYRINGE IVP ONE (16:58)
[2021-02-06] MEDS: Ceftaroline Fosamil Acetate 300 MG in 0.9 % Sodium Chloride 50 ML IVPB SCH ×2 (02:04→14:04)
[2021-02-06] MEDS: *HR* OxyCODONE/APAP 7.5/325 TABLET PO PRN ×5 (02:07→18:31)
[2021-02-06] MEDS: Sodium Bicarbonate 75 MEQ in 0.45 % Sodium Chloride 1,000 ML IVC SCH (02:20)
[2021-02-06] MEDS: Ipratropium/Albuterol Neb 3 ML IH SCH ×5 (04:11→20:21)
[2021-02-06] MEDS: *HR* Heparin 5,000 UNIT/ML VIAL SQ SCH ×2 (06:15→17:10)
[2021-02-06 06:38] LABS: Basophils % 0.3 %; Eosinophils % 0.3 %; Hematocrit 26.4 % (37.5-50.1); Hemoglobin 8.3 g/dL (12.9-16.9); Immature Granulocytes % 0.6 % (0-4); Lymphocytes # 3.4 K/mcL (0.6-4.6); Lymphocytes % 27.3 %; Mean Corpuscular HGB Conc 31.4 g/dL (31.6-35.5); Mean Corpuscular Hemoglobin 28.4 pg (28.0-33.3); Mean Corpuscular Volume 90.4 fL (83.0-100.0); Mean Platelet Volume 10.6 fL (9.4-12.4); Monocytes # 0.6 K/mcL (0.0-1.3); Monocytes % 4.4 %; Neutrophils # 8.3 K/mcL (1.6-8.9); Platelet Count 172 K/mcL (140-400); Red Blood Count 2.92 M/mcL (4.19-5.50); Red Cell Distribution Width 17.7 % (11.5-14.5); Segmented Neutrophils % 67.1 %; White Blood Count 12.4 K/mcL (4.3-11.1)
[2021-02-06] MEDS: Insulin LISPRO 300 UNITS/3 ML VIAL SUBQ SCH ×5 (07:37→21:39)
[2021-02-06 07:40] LABS: Potassium 5.6 mEq/L (3.5-5.1)
[2021-02-06] MEDS: Budesonide/Formoterol 160/4.5 1 PUFF INH IH SCH ×2 (07:49→20:21)
[2021-02-06] MEDS: Aspirin Enteric Coated 81 MG Tablet PO SCH (08:22)
[2021-02-06] MEDS: Lactobacillus 1 EACH CAP.SPRINK PO SCH ×2 (08:22→20:34)
[2021-02-06] MEDS: Isosorbide MONOnitrate (24 HR) 60 MG TAB.ER.24H PO SCH (08:22)
[2021-02-06] MEDS: Metoprolol XL (24 HR) Succ 25 MG TAB.ER.24H PO SCH (08:22)
[2021-02-06] MEDS: NIFEdipine XL (24 HR) 30 MG TAB.ER.24 PO SCH (08:22)
[2021-02-06] MEDS: SODIUM ZIRCONIUM CYCLOSILICATE 5 GM POWD.PACK PO SCH (08:23)
[2021-02-06] MEDS: Ranolazine 500 MG TAB.ER.12H PO SCH ×2 (08:23→20:34)
[2021-02-06] MEDS: Nicotine 21 MG PATCH.TD24 TD SCH (08:23)
[2021-02-06 09:17] LABS: Calcium 7.9 mg/dL (8.6-10.3)
[2021-02-06] MEDS ORDERED: Morphine Sulfate 2 MG/ML SYRINGE IVP ONE (21:05)
[2021-02-07] MEDS: *HR* OxyCODONE/APAP 10/325 TABLET PO PRN ×3 (00:19→21:15)
[2021-02-07] MEDS: Ipratropium/Albuterol Neb 3 ML IH SCH ×7 (00:33→23:05)
[2021-02-07] MEDS: Sodium Bicarbonate 75 MEQ in 0.45 % Sodium Chloride 1,000 ML IVC SCH (03:09)
[2021-02-07] MEDS: Ceftaroline Fosamil Acetate 300 MG in 0.9 % Sodium Chloride 50 ML IVPB SCH ×2 (03:12→15:36)
[2021-02-07] MEDS: *HR* OxyCODONE/APAP 7.5/325 TABLET PO PRN (04:34)
[2021-02-07] MEDS: *HR* Heparin 5,000 UNIT/ML VIAL SQ SCH ×2 (04:37→17:14)
[2021-02-07 05:05] LABS: Basophils # 0.1 K/mcL (0.0-0.2); Basophils % 0.4 %; Eosinophils # 0.1 K/mcL (0.0-0.6); Eosinophils % 0.9 %; Hematocrit 26.9 % (37.5-50.1); Hemoglobin 8.4 g/dL (12.9-16.9); Immature Granulocytes % 0.5 % (0-4); Lymphocytes # 3.6 K/mcL (0.6-4.6); Lymphocytes % 31.8 %; Mean Corpuscular HGB Conc 31.2 g/dL (31.6-35.5); Mean Corpuscular Hemoglobin 28.1 pg (28.0-33.3); Mean Platelet Volume 10.7 fL (9.4-12.4); Monocytes # 0.6 K/mcL (0.0-1.3); Monocytes % 5.4 %; Neutrophils # 6.9 K/mcL (1.6-8.9); Platelet Count 168 K/mcL (140-400); Red Blood Count 2.99 M/mcL (4.19-5.50); Red Cell Distribution Width 17.2 % (11.5-14.5); White Blood Count 11.4 K/mcL (4.3-11.1)
[2021-02-07 05:26] LABS: Calcium 8.1 mg/dL (8.6-10.3); Potassium 5.4 mEq/L (3.5-5.1)
[2021-02-07] MEDS ORDERED: methylPREDNISolone 125 MG/2 ML VIAL ONE (05:48)
[2021-02-07] MEDS ORDERED: methylPREDNISolone 125 MG/2 ML VIAL IVP ONE (05:48)
[2021-02-07] MEDS ORDERED: Ipratropium/Albuterol Neb 3 ML ONE (05:51)
[2021-02-07 05:57] LABS: ABG Base Excess 1 mEq/L (-2 to 3); ABG HCO3 28 mEq/L (21-27); ABG Oxygen Saturation 94 % (95-98); ABG PCO2 55 mmHg (35-45); ABG PH 7.31 pH Units (7.32-7.45); ABG PO2 80 mmHg (85-104); ABG TCO2 29 mEq/L (20-26); Blood Gas Modality avaps; Blood Gas VT 500 cc
[2021-02-07] MEDS ORDERED: Ipratropium/Albuterol Neb 3 ML IH ONE (06:02)
[2021-02-07] MEDS ORDERED: Naloxone 0.4 MG/ML INJ ONE (06:13)
[2021-02-07] MEDS: Naloxone 0.4 MG/ML INJ IVP PRN ×2 (06:24→06:48)
[2021-02-07] MEDS: Budesonide/Formoterol 160/4.5 1 PUFF INH IH SCH ×2 (07:34→20:06)
[2021-02-07] MEDS: Insulin LISPRO 300 UNITS/3 ML VIAL SUBQ SCH ×4 (09:53→21:17)
[2021-02-07] MEDS: Nicotine 21 MG PATCH.TD24 TD SCH (09:54)
[2021-02-07] MEDS: SODIUM ZIRCONIUM CYCLOSILICATE 5 GM POWD.PACK PO SCH (10:00)
[2021-02-07] MEDS: Isosorbide MONOnitrate (24 HR) 60 MG TAB.ER.24H PO SCH (10:01)
[2021-02-07] MEDS: Metoprolol XL (24 HR) Succ 25 MG TAB.ER.24H PO SCH (10:01)
[2021-02-07] MEDS: Ranolazine 500 MG TAB.ER.12H PO SCH ×2 (10:01→21:16)
[2021-02-07] MEDS: NIFEdipine XL (24 HR) 30 MG TAB.ER.24 PO SCH (10:02)
[2021-02-07] MEDS: Lactobacillus 1 EACH CAP.SPRINK PO SCH ×2 (10:02→21:16)
[2021-02-07] MEDS: Aspirin Enteric Coated 81 MG Tablet PO SCH (10:05)
[2021-02-07] MEDS ORDERED: *HR* OxyCODONE/APAP 7.5/325 TABLET PO PRN (12:47)
[2021-02-07] MEDS ORDERED: Furosemide 40 MG/4 ML VIAL IVP ONE (13:20)
[2021-02-07] MEDS ORDERED: Albumin 25% 25gram/100mL 25 GM/100 ML IV.SOLN IVPB ONE (13:20)
[2021-02-07] MEDS ORDERED: Dextrose Gel 15 GM/37.5 ML TUBE PO PRN ×2 (18:54)
[2021-02-07] MEDS ORDERED: Perflutren Lipid Microsphere 1.3 ML in 0.9 % Sodium Chloride 8.7 ML IVP PRN (18:54)
[2021-02-07] MEDS ORDERED: Nicotine 2 MG GUM BC PRN (18:54)
[2021-02-07] MEDS ORDERED: Naloxone 0.4 MG/ML INJ IVP PRN (18:54)
[2021-02-07] MEDS ORDERED: D5% in Water 1,000 ML IVC PRN (18:54)
[2021-02-08] MEDS: Ceftaroline Fosamil Acetate 300 MG in 0.9 % Sodium Chloride 50 ML IVPB SCH ×4 (02:02→13:52)
[2021-02-08] MEDS: *HR* OxyCODONE/APAP 10/325 TABLET PO PRN ×4 (02:49→22:33)
[2021-02-08] MEDS: Ipratropium/Albuterol Neb 3 ML IH SCH ×5 (02:59→20:46)
[2021-02-08 03:22] LABS: Basophils % 0.1 %; Hematocrit 26.4 % (37.5-50.1); Hemoglobin 8.1 g/dL (12.9-16.9); Immature Granulocytes % 0.9 % (0-4); Lymphocytes # 1.9 K/mcL (0.6-4.6); Lymphocytes % 18.5 %; Mean Corpuscular HGB Conc 30.7 g/dL (31.6-35.5); Mean Corpuscular Volume 91.3 fL (83.0-100.0); Mean Platelet Volume 10.5 fL (9.4-12.4); Monocytes # 0.4 K/mcL (0.0-1.3); Monocytes % 3.6 %; Neutrophils # 7.8 K/mcL (1.6-8.9); Platelet Count 152 K/mcL (140-400); Red Blood Count 2.89 M/mcL (4.19-5.50); Segmented Neutrophils % 76.9 %; White Blood Count 10.1 K/mcL (4.3-11.1)
[2021-02-08 03:37] LABS: Calcium 8.4 mg/dL (8.6-10.3); Potassium 5.5 mEq/L (3.5-5.1)
[2021-02-08] MEDS: *HR* Heparin 5,000 UNIT/ML VIAL SQ SCH ×2 (05:43→17:35)
[2021-02-08] MEDS: Budesonide/Formoterol 160/4.5 1 PUFF INH IH SCH ×2 (07:58→20:46)
[2021-02-08] MEDS: Nicotine 21 MG PATCH.TD24 TD SCH (09:16)
[2021-02-08] MEDS: Lactobacillus 1 EACH CAP.SPRINK PO SCH ×2 (09:17→21:19)
[2021-02-08] MEDS: NIFEdipine XL (24 HR) 30 MG TAB.ER.24 PO SCH (09:17)
[2021-02-08] MEDS: Isosorbide MONOnitrate (24 HR) 60 MG TAB.ER.24H PO SCH (09:17)
[2021-02-08] MEDS: Metoprolol XL (24 HR) Succ 25 MG TAB.ER.24H PO SCH (09:20)
[2021-02-08] MEDS: Ranolazine 500 MG TAB.ER.12H PO SCH ×2 (09:20→21:19)
[2021-02-08] MEDS: Aspirin Enteric Coated 81 MG Tablet PO SCH (09:21)
[2021-02-08] MEDS: SODIUM ZIRCONIUM CYCLOSILICATE 5 GM POWD.PACK PO SCH (09:21)
[2021-02-08] MEDS: Insulin LISPRO 300 UNITS/3 ML VIAL SUBQ SCH ×4 (09:56→21:20)
[2021-02-08] MEDS ORDERED: Albumin 25% 25gram/100mL 25 GM/100 ML IV.SOLN IVPB ONE (10:46)
[2021-02-08] MEDS ORDERED: Furosemide 60 MG in 0.9 % Sodium Chloride 50 ML IVPB ONE (10:47)
[2021-02-09] MEDS: Ipratropium/Albuterol Neb 3 ML IH SCH ×7 (00:04→23:18)
[2021-02-09] MEDS: Ceftaroline Fosamil Acetate 300 MG in 0.9 % Sodium Chloride 50 ML IVPB SCH ×2 (03:10→14:00)
[2021-02-09 03:51] LABS: Basophils % 0.2 %; Eosinophils # 0.1 K/mcL (0.0-0.6); Eosinophils % 0.4 %; Hematocrit 24.8 % (37.5-50.1); Hemoglobin 7.6 g/dL (12.9-16.9); Immature Granulocytes % 0.6 % (0-4); Lymphocytes # 4.2 K/mcL (0.6-4.6); Lymphocytes % 37.2 %; Mean Corpuscular HGB Conc 30.6 g/dL (31.6-35.5); Mean Corpuscular Hemoglobin 27.8 pg (28.0-33.3); Mean Corpuscular Volume 90.8 fL (83.0-100.0); Monocytes # 0.7 K/mcL (0.0-1.3); Monocytes % 5.8 %; Neutrophils # 6.3 K/mcL (1.6-8.9); Platelet Count 164 K/mcL (140-400); Red Blood Count 2.73 M/mcL (4.19-5.50); Red Cell Distribution Width 17.1 % (11.5-14.5); Segmented Neutrophils % 55.8 %; White Blood Count 11.3 K/mcL (4.3-11.1)
[2021-02-09 04:09] LABS: Calcium 8.1 mg/dL (8.6-10.3); Potassium 4.6 mEq/L (3.5-5.1)
[2021-02-09] MEDS: *HR* OxyCODONE/APAP 10/325 TABLET PO PRN ×3 (04:46→17:19)
[2021-02-09] MEDS: *HR* Heparin 5,000 UNIT/ML VIAL SQ SCH ×2 (06:07→17:19)
[2021-02-09] MEDS: Budesonide/Formoterol 160/4.5 1 PUFF INH IH SCH ×2 (07:40→20:22)
[2021-02-09] MEDS: NIFEdipine XL (24 HR) 30 MG TAB.ER.24 PO SCH (08:08)
[2021-02-09] MEDS: Ranolazine 500 MG TAB.ER.12H PO SCH ×2 (08:08→21:04)
[2021-02-09] MEDS: Metoprolol XL (24 HR) Succ 25 MG TAB.ER.24H PO SCH (08:09)
[2021-02-09] MEDS: Isosorbide MONOnitrate (24 HR) 60 MG TAB.ER.24H PO SCH (08:09)
[2021-02-09] MEDS: Lactobacillus 1 EACH CAP.SPRINK PO SCH ×2 (08:09→21:04)
[2021-02-09] MEDS: Nicotine 21 MG PATCH.TD24 TD SCH (08:09)
[2021-02-09] MEDS: Aspirin Enteric Coated 81 MG Tablet PO SCH (08:09)
[2021-02-09] MEDS: Insulin LISPRO 300 UNITS/3 ML VIAL SUBQ SCH ×4 (08:10→21:04)
[2021-02-09] MEDS: SODIUM ZIRCONIUM CYCLOSILICATE 5 GM POWD.PACK PO SCH (08:14)
[2021-02-09] MEDS: predniSONE 20 MG TABLET PO SCH (15:37)
[2021-02-09] MEDS ORDERED: Albumin 25% 25gram/100mL 25 GM/100 ML IV.SOLN IVPB ONE (15:47)
[2021-02-09] MEDS ORDERED: Furosemide 40 MG/4 ML VIAL IVP ONE (17:00)
[2021-02-10] MEDS: Ipratropium/Albuterol Neb 3 ML IH SCH ×6 (03:50→23:34)
[2021-02-10] MEDS: Ceftaroline Fosamil Acetate 300 MG in 0.9 % Sodium Chloride 50 ML IVPB SCH ×2 (03:54→13:47)
[2021-02-10 05:12] LABS: Basophils % 0.1 %; Hematocrit 25.5 % (37.5-50.1); Hemoglobin 7.7 g/dL (12.9-16.9); Immature Granulocytes % 0.7 % (0-4); Lymphocytes # 1.7 K/mcL (0.6-4.6); Lymphocytes % 20.2 %; Mean Corpuscular HGB Conc 30.2 g/dL (31.6-35.5); Mean Corpuscular Hemoglobin 27.9 pg (28.0-33.3); Mean Corpuscular Volume 92.4 fL (83.0-100.0); Mean Platelet Volume 11.1 fL (9.4-12.4); Monocytes # 0.3 K/mcL (0.0-1.3); Monocytes % 3.6 %; Neutrophils # 6.4 K/mcL (1.6-8.9); Platelet Count 143 K/mcL (140-400); Red Blood Count 2.76 M/mcL (4.19-5.50); Segmented Neutrophils % 75.4 %; White Blood Count 8.5 K/mcL (4.3-11.1)
[2021-02-10 05:47] LABS: Anisocytosis 1+ (Not Present); Calcium 8.2 mg/dL (8.6-10.3); Macrocytosis Present (Not Present); Platelet Estimate Normal (Normal); Potassium 5.4 mEq/L (3.5-5.1); Smudge Cells Present (Not Present)
[2021-02-10] MEDS: *HR* Heparin 5,000 UNIT/ML VIAL SQ SCH ×2 (05:52→17:02)
[2021-02-10] MEDS: *HR* OxyCODONE/APAP 10/325 TABLET PO PRN ×3 (06:21→19:45)
[2021-02-10] MEDS: Budesonide/Formoterol 160/4.5 1 PUFF INH IH SCH ×2 (07:40→20:16)
[2021-02-10] MEDS: predniSONE 20 MG TABLET PO SCH (08:34)
[2021-02-10] MEDS: NIFEdipine XL (24 HR) 30 MG TAB.ER.24 PO SCH (08:34)
[2021-02-10] MEDS: Nicotine 21 MG PATCH.TD24 TD SCH (08:34)
[2021-02-10] MEDS: Aspirin Enteric Coated 81 MG Tablet PO SCH (08:34)
[2021-02-10] MEDS: Lactobacillus 1 EACH CAP.SPRINK PO SCH ×2 (08:35→19:45)
[2021-02-10] MEDS: Ranolazine 500 MG TAB.ER.12H PO SCH ×2 (08:35→19:45)
[2021-02-10] MEDS: Isosorbide MONOnitrate (24 HR) 60 MG TAB.ER.24H PO SCH (08:35)
[2021-02-10] MEDS: SODIUM ZIRCONIUM CYCLOSILICATE 5 GM POWD.PACK PO SCH (08:35)
[2021-02-10] MEDS: Metoprolol XL (24 HR) Succ 25 MG TAB.ER.24H PO SCH (08:35)
[2021-02-10] MEDS: Insulin LISPRO 300 UNITS/3 ML VIAL SUBQ SCH ×4 (08:36→21:00)
[2021-02-10] MEDS ORDERED: Furosemide 40 MG/4 ML VIAL IVP ONE (13:18)
[2021-02-10] MEDS ORDERED: Albumin 25% 25gram/100mL 25 GM/100 ML IV.SOLN IVPB ONE (13:18)
[2021-02-10] MEDS: Morphine Sulfate Oral CONC 10 MG/0.5 ML ORAL.SYG SL PRN (22:23)
[2021-02-11] MEDS: Ceftaroline Fosamil Acetate 300 MG in 0.9 % Sodium Chloride 50 ML IVPB SCH ×2 (01:53→14:30)
[2021-02-11] MEDS: *HR* Heparin 5,000 UNIT/ML VIAL SQ SCH ×2 (04:19→17:12)
[2021-02-11] MEDS: Morphine Sulfate Oral CONC 10 MG/0.5 ML ORAL.SYG SL PRN ×5 (04:20→20:45)
[2021-02-11 04:28] LABS: Hematocrit 24.5 % (37.5-50.1); Hemoglobin 7.7 g/dL (12.9-16.9); Mean Corpuscular HGB Conc 31.4 g/dL (31.6-35.5); Mean Corpuscular Hemoglobin 28.5 pg (28.0-33.3); Mean Corpuscular Volume 90.7 fL (83.0-100.0); Mean Platelet Volume 11.4 fL (9.4-12.4); Platelet Count 165 K/mcL (140-400); Red Cell Distribution Width 16.9 % (11.5-14.5); White Blood Count 10.6 K/mcL (4.3-11.1)
[2021-02-11] MEDS: Ipratropium/Albuterol Neb 3 ML IH SCH ×6 (04:44→23:44)
[2021-02-11 04:48] LABS: Calcium 8.3 mg/dL (8.6-10.3); Potassium 5.2 mEq/L (3.5-5.1)
[2021-02-11] MEDS: Budesonide/Formoterol 160/4.5 1 PUFF INH IH SCH ×2 (07:29→20:20)
[2021-02-11] MEDS ORDERED: *HR* HYDROcodone/Acet 5/325 mg TABLET PO ONE (08:01)
[2021-02-11] MEDS: Insulin LISPRO 300 UNITS/3 ML VIAL SUBQ SCH ×5 (09:14→20:43)
[2021-02-11] MEDS: SODIUM ZIRCONIUM CYCLOSILICATE 5 GM POWD.PACK PO SCH (09:46)
[2021-02-11] MEDS: Lactobacillus 1 EACH CAP.SPRINK PO SCH ×2 (09:47→20:44)
[2021-02-11] MEDS: NIFEdipine XL (24 HR) 30 MG TAB.ER.24 PO SCH (09:47)
[2021-02-11] MEDS: Metoprolol XL (24 HR) Succ 25 MG TAB.ER.24H PO SCH (09:47)
[2021-02-11] MEDS: Nicotine 21 MG PATCH.TD24 TD SCH (09:47)
[2021-02-11] MEDS: Isosorbide MONOnitrate (24 HR) 60 MG TAB.ER.24H PO SCH (09:47)
[2021-02-11] MEDS: predniSONE 20 MG TABLET PO SCH (09:48)
[2021-02-11] MEDS: Aspirin Enteric Coated 81 MG Tablet PO SCH (09:48)
[2021-02-11] MEDS: Ranolazine 500 MG TAB.ER.12H PO SCH ×2 (09:48→20:44)
[2021-02-12] MEDS: Ceftaroline Fosamil Acetate 300 MG in 0.9 % Sodium Chloride 50 ML IVPB SCH ×2 (01:06→13:54)
[2021-02-12] MEDS: Morphine Sulfate Oral CONC 10 MG/0.5 ML ORAL.SYG SL PRN ×5 (01:07→21:38)
[2021-02-12] MEDS: Ipratropium/Albuterol Neb 3 ML IH SCH ×6 (03:34→23:17)
[2021-02-12 03:40] LABS: Hematocrit 22.9 % (37.5-50.1); Hemoglobin 7.4 g/dL (12.9-16.9); Mean Corpuscular HGB Conc 32.3 g/dL (31.6-35.5); Mean Corpuscular Hemoglobin 28.9 pg (28.0-33.3); Mean Corpuscular Volume 89.5 fL (83.0-100.0); Mean Platelet Volume 11.1 fL (9.4-12.4); Platelet Count 179 K/mcL (140-400); Red Blood Count 2.56 M/mcL (4.19-5.50); Red Cell Distribution Width 16.7 % (11.5-14.5); White Blood Count 9.1 K/mcL (4.3-11.1)
[2021-02-12 03:51] LABS: Calcium 8.2 mg/dL (8.6-10.3); Potassium 5.1 mEq/L (3.5-5.1)
[2021-02-12] MEDS: *HR* Heparin 5,000 UNIT/ML VIAL SQ SCH ×2 (05:53→17:04)
[2021-02-12] MEDS: Budesonide/Formoterol 160/4.5 1 PUFF INH IH SCH ×2 (07:39→19:58)
[2021-02-12] MEDS: Insulin LISPRO 300 UNITS/3 ML VIAL SUBQ SCH ×4 (08:45→20:01)
[2021-02-12] MEDS: Nicotine 21 MG PATCH.TD24 TD SCH (08:46)
[2021-02-12] MEDS: SODIUM ZIRCONIUM CYCLOSILICATE 5 GM POWD.PACK PO SCH (08:48)
[2021-02-12] MEDS: Aspirin Enteric Coated 81 MG Tablet PO SCH (08:49)
[2021-02-12] MEDS: Metoprolol XL (24 HR) Succ 25 MG TAB.ER.24H PO SCH (08:49)
[2021-02-12] MEDS: Isosorbide MONOnitrate (24 HR) 60 MG TAB.ER.24H PO SCH (08:49)
[2021-02-12] MEDS: Ranolazine 500 MG TAB.ER.12H PO SCH ×2 (08:49→20:00)
[2021-02-12] MEDS: Lactobacillus 1 EACH CAP.SPRINK PO SCH ×2 (08:50→20:01)
[2021-02-12] MEDS: Furosemide 40 MG TABLET PO SCH (08:50)
[2021-02-12] MEDS: NIFEdipine XL (24 HR) 30 MG TAB.ER.24 PO SCH (08:50)
[2021-02-12] MEDS: predniSONE 20 MG TABLET PO SCH (08:50)
[2021-02-13] MEDS: Ceftaroline Fosamil Acetate 300 MG in 0.9 % Sodium Chloride 50 ML IVPB SCH ×2 (01:38→14:54)
[2021-02-13] MEDS: Morphine Sulfate Oral CONC 10 MG/0.5 ML ORAL.SYG SL PRN ×6 (01:43→21:38)
[2021-02-13 02:07] LABS: Basophils % 0.2 %; Hematocrit 26.8 % (37.5-50.1); Hemoglobin 8.3 g/dL (12.9-16.9); Immature Granulocytes % 1.4 % (0-4); Lymphocytes # 1.8 K/mcL (0.6-4.6); Lymphocytes % 19.9 %; Mean Corpuscular Hemoglobin 28.4 pg (28.0-33.3); Mean Corpuscular Volume 91.8 fL (83.0-100.0); Mean Platelet Volume 10.8 fL (9.4-12.4); Monocytes # 0.5 K/mcL (0.0-1.3); Neutrophils # 6.7 K/mcL (1.6-8.9); Platelet Count 223 K/mcL (140-400); Red Blood Count 2.92 M/mcL (4.19-5.50); Red Cell Distribution Width 16.7 % (11.5-14.5); Segmented Neutrophils % 73.5 %; White Blood Count 9.1 K/mcL (4.3-11.1)
[2021-02-13 02:26] LABS: Calcium 8.4 mg/dL (8.6-10.3); Potassium 5.4 mEq/L (3.5-5.1)
[2021-02-13] MEDS: Ipratropium/Albuterol Neb 3 ML IH SCH ×6 (03:36→23:13)
[2021-02-13] MEDS: *HR* Heparin 5,000 UNIT/ML VIAL SQ SCH ×2 (05:28→16:45)
[2021-02-13] MEDS: Budesonide/Formoterol 160/4.5 1 PUFF INH IH SCH ×2 (07:45→20:00)
[2021-02-13] MEDS: Insulin LISPRO 300 UNITS/3 ML VIAL SUBQ SCH ×4 (07:57→21:38)
[2021-02-13] MEDS: Furosemide 40 MG TABLET PO SCH ×2 (07:58→16:45)
[2021-02-13] MEDS: Aspirin Enteric Coated 81 MG Tablet PO SCH (07:58)
[2021-02-13] MEDS: SODIUM ZIRCONIUM CYCLOSILICATE 5 GM POWD.PACK PO SCH (07:58)
[2021-02-13] MEDS: NIFEdipine XL (24 HR) 30 MG TAB.ER.24 PO SCH (07:58)
[2021-02-13] MEDS: Lactobacillus 1 EACH CAP.SPRINK PO SCH ×2 (07:58→21:37)
[2021-02-13] MEDS: Isosorbide MONOnitrate (24 HR) 60 MG TAB.ER.24H PO SCH (07:58)
[2021-02-13] MEDS: Ranolazine 500 MG TAB.ER.12H PO SCH ×2 (07:58→21:37)
[2021-02-13] MEDS: Metoprolol XL (24 HR) Succ 25 MG TAB.ER.24H PO SCH (07:58)
[2021-02-13] MEDS: Nicotine 21 MG PATCH.TD24 TD SCH (07:58)
[2021-02-13] MEDS ORDERED: Furosemide 40 MG TABLET PO SCH (12:15)
[2021-02-13] MEDS ORDERED: Insulin Human Regular 10 UNIT in 0.9 % Sodium Chloride 10 ML IV ONE (12:30)
[2021-02-13] MEDS: Ondansetron 4 MG/2 ML VIAL IVP PRN (21:37)
[2021-02-14] MEDS: Morphine Sulfate Oral CONC 10 MG/0.5 ML ORAL.SYG SL PRN ×5 (00:52→18:05)
[2021-02-14] MEDS: Nitroglycerin 0.4 MG TAB.SUBL SL PRN ×3 (01:24→01:40)
[2021-02-14 01:43] LABS: Calcium 8.2 mg/dL (8.6-10.3); Potassium 5.1 mEq/L (3.5-5.1)
[2021-02-14] MEDS: Ceftaroline Fosamil Acetate 300 MG in 0.9 % Sodium Chloride 50 ML IVPB SCH ×2 (01:54→14:58)
[2021-02-14 02:26] LABS: Basophils % 0.2 %; Eosinophils % 0.2 %; Hematocrit 25.8 % (37.5-50.1); Hemoglobin 8.2 g/dL (12.9-16.9); Immature Granulocytes % 1.6 % (0-4); Lymphocytes # 4.2 K/mcL (0.6-4.6); Lymphocytes % 34.2 %; Mean Corpuscular HGB Conc 31.8 g/dL (31.6-35.5); Mean Corpuscular Hemoglobin 28.5 pg (28.0-33.3); Mean Corpuscular Volume 89.6 fL (83.0-100.0); Mean Platelet Volume 10.4 fL (9.4-12.4); Monocytes % 8.4 %; Neutrophils # 6.8 K/mcL (1.6-8.9); Platelet Count 238 K/mcL (140-400); Red Blood Count 2.88 M/mcL (4.19-5.50); Red Cell Distribution Width 16.3 % (11.5-14.5); Segmented Neutrophils % 55.4 %; White Blood Count 12.2 K/mcL (4.3-11.1)
[2021-02-14] MEDS: Ipratropium/Albuterol Neb 3 ML IH SCH ×6 (04:09→23:02)
[2021-02-14] MEDS: *HR* Heparin 5,000 UNIT/ML VIAL SQ SCH ×2 (06:35→16:44)
[2021-02-14] MEDS: Budesonide/Formoterol 160/4.5 1 PUFF INH IH SCH ×2 (07:35→19:59)
[2021-02-14] MEDS ORDERED: Insulin DETEMIR 100 UNIT/ML X5UNITS SUBQ ONE (08:18)
[2021-02-14] MEDS: Metoprolol XL (24 HR) Succ 25 MG TAB.ER.24H PO SCH (09:03)
[2021-02-14] MEDS: Ranolazine 500 MG TAB.ER.12H PO SCH ×2 (09:03→19:36)
[2021-02-14] MEDS: Aspirin Enteric Coated 81 MG Tablet PO SCH (09:03)
[2021-02-14] MEDS: Isosorbide MONOnitrate (24 HR) 60 MG TAB.ER.24H PO SCH (09:03)
[2021-02-14] MEDS: Furosemide 40 MG TABLET PO SCH (09:03)
[2021-02-14] MEDS: NIFEdipine XL (24 HR) 30 MG TAB.ER.24 PO SCH (09:03)
[2021-02-14] MEDS: Insulin LISPRO 300 UNITS/3 ML VIAL SUBQ SCH ×5 (09:03→19:42)
[2021-02-14] MEDS: Lactobacillus 1 EACH CAP.SPRINK PO SCH ×2 (09:04→19:36)
[2021-02-14] MEDS: SODIUM ZIRCONIUM CYCLOSILICATE 5 GM POWD.PACK PO SCH (09:04)
[2021-02-14] MEDS: Nicotine 21 MG PATCH.TD24 TD SCH (09:04)
[2021-02-14] MEDS: Furosemide 40 MG/4 ML VIAL IVP SCH ×2 (12:56→16:46)
[2021-02-14 15:42] LABS: Albumin/Globulin Ratio 1.1 (1.1-2.2); Bilirubin,Direct 0.1 mg/dL (0.0-0.2); Bilirubin,Indirect 0.3 mg/dL (0.0-1.0); Bilirubin,Total 0.4 mg/dL (0.3-1.0); Globulin 2.8 g/dL (2.4-3.5); Total Protein 5.8 g/dL (6.4-8.9)
[2021-02-14] MEDS: Ondansetron 4 MG/2 ML VIAL IVP PRN (19:36)
[2021-02-14] MEDS: Insulin DETEMIR 100 UNIT/ML X5UNITS SUBQ SCH (19:41)
[2021-02-15] MEDS: Ceftaroline Fosamil Acetate 300 MG in 0.9 % Sodium Chloride 50 ML IVPB SCH ×2 (02:34→15:40)
[2021-02-15] MEDS: Morphine Sulfate Oral CONC 10 MG/0.5 ML ORAL.SYG SL PRN ×3 (02:35→18:46)
[2021-02-15 03:07] LABS: Eosinophils # 0.3 K/mcL (0.0-0.6); Hematocrit 25.7 % (37.5-50.1); Hemoglobin 7.9 g/dL (12.9-16.9); Mean Corpuscular HGB Conc 30.7 g/dL (31.6-35.5); Mean Corpuscular Volume 91.1 fL (83.0-100.0); Mean Platelet Volume 10.5 fL (9.4-12.4); Platelet Count 200 K/mcL (140-400); Red Blood Count 2.82 M/mcL (4.19-5.50); Red Cell Distribution Width 16.4 % (11.5-14.5); White Blood Count 13.5 K/mcL (4.3-11.1)
[2021-02-15 03:27] LABS: Albumin 2.8 g/dL (3.5-5.7); Albumin/Globulin Ratio 1.1 (1.1-2.2); Bilirubin,Total 0.4 mg/dL (0.3-1.0); Globulin 2.6 g/dL (2.4-3.5); Potassium 5.6 mEq/L (3.5-5.1); Total Protein 5.4 g/dL (6.4-8.9)
[2021-02-15 03:55] LABS: Hypochromasia Present (Not Present); Monocytes # 1.2 K/mcL (0.0-1.3)
[2021-02-15 03:56] LABS: Platelet Estimate Normal (Normal); Reactive Lymphocytes Present (Not Present)
[2021-02-15] MEDS: Ipratropium/Albuterol Neb 3 ML IH SCH ×5 (04:02→20:03)
[2021-02-15] MEDS: *HR* Heparin 5,000 UNIT/ML VIAL SQ SCH ×2 (05:44→17:02)
[2021-02-15] MEDS: Budesonide/Formoterol 160/4.5 1 PUFF INH IH SCH ×2 (07:16→20:04)
[2021-02-15] MEDS: Insulin LISPRO 300 UNITS/3 ML VIAL SUBQ SCH ×4 (08:15→20:29)
[2021-02-15] MEDS: SODIUM ZIRCONIUM CYCLOSILICATE 5 GM POWD.PACK PO SCH (08:25)
[2021-02-15] MEDS: Lactobacillus 1 EACH CAP.SPRINK PO SCH ×2 (08:26→20:28)
[2021-02-15] MEDS: NIFEdipine XL (24 HR) 30 MG TAB.ER.24 PO SCH (08:26)
[2021-02-15] MEDS: Metoprolol XL (24 HR) Succ 25 MG TAB.ER.24H PO SCH (08:26)
[2021-02-15] MEDS: Furosemide 40 MG/4 ML VIAL IVP SCH ×2 (08:26→17:01)
[2021-02-15] MEDS: Nicotine 21 MG PATCH.TD24 TD SCH (08:26)
[2021-02-15] MEDS: Ranolazine 500 MG TAB.ER.12H PO SCH ×2 (08:26→20:28)
[2021-02-15] MEDS: Aspirin Enteric Coated 81 MG Tablet PO SCH (08:26)
[2021-02-15] MEDS: Isosorbide MONOnitrate (24 HR) 60 MG TAB.ER.24H PO SCH (08:26)
[2021-02-15] MEDS ORDERED: 0.9 % Sodium Chloride 250 ML IVC PRN (09:07)
[2021-02-15] MEDS ORDERED: 0.9 % Sodium Chloride 1,000 ML PRIME SCH (09:15)
[2021-02-15 11:33] LABS: Hepatitis B Surface Antibody < 3.10 mIU/mL
[2021-02-15 11:45] LABS: Hepatitis B Surface Antigen Nonreactive (Nonreactive)
[2021-02-15] MEDS ORDERED: Heparin 1,000 UNITS/500 mL 500 ML ONE (12:23)
[2021-02-15] MEDS ORDERED: 0.9 % Sodium Chloride 500 ML ONE (12:33)
[2021-02-15] MEDS ORDERED: *HR* Midazolam HCl 2 MG/2 ML VIAL ONE (12:44)
[2021-02-15] MEDS ORDERED: *HR* FentaNYL (PF) 100 MCG/2 ML VIAL ONE (12:44)
[2021-02-15] MEDS ORDERED: *HR* FentaNYL (PF) 100 MCG/2 ML VIAL IVP ONE (12:49)
[2021-02-15] MEDS ORDERED: *HR* Midazolam HCl 2 MG/2 ML VIAL IVP ONE (12:49)
[2021-02-15] MEDS ORDERED: *HR* Heparin 5,000 UNIT/ML VIAL ONE (12:50)
[2021-02-15] MEDS: levoFLOXacin 750 MG TABLET PO SCH (15:00)
[2021-02-15] MEDS ORDERED: *HR* Heparin 10,000 UNIT/10 ML VIAL IV PRN (16:02)
[2021-02-15] MEDS: Insulin DETEMIR 100 UNIT/ML X5UNITS SUBQ SCH (20:28)
[2021-02-16] MEDS: *HR* Dextrose 50 % in Water (Vial) 50 ML VIAL IVP PRN ×2 (03:06→19:13)
[2021-02-16 03:13] LABS: Hematocrit 25.7 % (37.5-50.1); Hemoglobin 8.1 g/dL (12.9-16.9); Mean Corpuscular HGB Conc 31.5 g/dL (31.6-35.5); Mean Corpuscular Hemoglobin 28.2 pg (28.0-33.3); Mean Corpuscular Volume 89.5 fL (83.0-100.0); Mean Platelet Volume 9.8 fL (9.4-12.4); Platelet Count 190 K/mcL (140-400); Red Blood Count 2.87 M/mcL (4.19-5.50); Red Cell Distribution Width 16.4 % (11.5-14.5); White Blood Count 14.4 K/mcL (4.3-11.1)
[2021-02-16] MEDS: Morphine Sulfate Oral CONC 10 MG/0.5 ML ORAL.SYG SL PRN (03:13)
[2021-02-16 03:20] LABS: INR 1.3
[2021-02-16 03:30] LABS: Calcium 8.3 mg/dL (8.6-10.3); Potassium 4.9 mEq/L (3.5-5.1)
[2021-02-16] MEDS: Ipratropium/Albuterol Neb 3 ML IH SCH ×6 (04:20→19:50)
[2021-02-16] MEDS: *HR* Heparin 5,000 UNIT/ML VIAL SQ SCH ×2 (05:21→17:58)
[2021-02-16] MEDS ORDERED: 0.9 % Sodium Chloride 250 ML IVC PRN (07:17)
[2021-02-16] MEDS: Budesonide/Formoterol 160/4.5 1 PUFF INH IH SCH ×2 (07:24→19:50)
[2021-02-16] MEDS: Insulin LISPRO 300 UNITS/3 ML VIAL SUBQ SCH ×4 (08:38→19:39)
[2021-02-16] MEDS: Furosemide 40 MG/4 ML VIAL IVP SCH ×2 (08:41→16:05)
[2021-02-16] MEDS: NIFEdipine XL (24 HR) 30 MG TAB.ER.24 PO SCH (08:42)
[2021-02-16] MEDS: Nicotine 21 MG PATCH.TD24 TD SCH (08:42)
[2021-02-16] MEDS: Ranolazine 500 MG TAB.ER.12H PO SCH ×2 (08:42→19:39)
[2021-02-16] MEDS: Metoprolol XL (24 HR) Succ 25 MG TAB.ER.24H PO SCH (08:42)
[2021-02-16] MEDS: SODIUM ZIRCONIUM CYCLOSILICATE 5 GM POWD.PACK PO SCH (08:42)
[2021-02-16] MEDS: Aspirin Enteric Coated 81 MG Tablet PO SCH (08:42)
[2021-02-16] MEDS: Isosorbide MONOnitrate (24 HR) 60 MG TAB.ER.24H PO SCH (08:42)
[2021-02-16] MEDS: Lactobacillus 1 EACH CAP.SPRINK PO SCH ×2 (08:42→19:38)
[2021-02-16] MEDS ORDERED: *HR* Heparin 10,000 UNIT/10 ML VIAL ONE (12:10)
[2021-02-16] MEDS ORDERED: NIFEdipine XL (24 HR) 30 MG TAB.ER.24 PO SCH (15:15)
[2021-02-16] MEDS ORDERED: NIFEdipine XL (24 HR) 30 MG TAB.ER.24 PO ONE (16:00)
[2021-02-16] MEDS: Linezolid 600 MG TABLET PO SCH (19:38)
[2021-02-16] MEDS: Insulin DETEMIR 100 UNIT/ML X5UNITS SUBQ SCH (19:40)
[2021-02-17] MEDS: Ipratropium/Albuterol Neb 3 ML IH SCH ×6 (00:24→21:19)
[2021-02-17] MEDS ORDERED: Melatonin 3 MG TABLET PO PRN (01:59)
[2021-02-17] MEDS: *HR* Heparin 5,000 UNIT/ML VIAL SQ SCH ×2 (05:10→18:13)
[2021-02-17 06:19] LABS: Hematocrit 24.8 % (37.5-50.1); Hemoglobin 7.8 g/dL (12.9-16.9); Mean Corpuscular HGB Conc 31.5 g/dL (31.6-35.5); Mean Corpuscular Hemoglobin 28.4 pg (28.0-33.3); Mean Corpuscular Volume 90.2 fL (83.0-100.0); Platelet Count 174 K/mcL (140-400); Red Blood Count 2.75 M/mcL (4.19-5.50); Red Cell Distribution Width 16.5 % (11.5-14.5); White Blood Count 15.4 K/mcL (4.3-11.1)
[2021-02-17 06:42] LABS: Calcium 8.3 mg/dL (8.6-10.3); Potassium 4.5 mEq/L (3.5-5.1)
[2021-02-17] MEDS ORDERED: Furosemide 20 MG TABLET PO PRN (07:05)
[2021-02-17] MEDS ORDERED: 0.9 % Sodium Chloride 250 ML IVC PRN (07:06)
[2021-02-17] MEDS ORDERED: NIFEdipine XL (24 HR) 60 MG TAB.ER.24 PO SCH (09:00)
[2021-02-17] MEDS: Isosorbide MONOnitrate (24 HR) 60 MG TAB.ER.24H PO SCH ×2 (09:04→09:09)
[2021-02-17] MEDS: Insulin LISPRO 300 UNITS/3 ML VIAL SUBQ SCH ×3 (09:07→17:04)
[2021-02-17] MEDS: Nicotine 21 MG PATCH.TD24 TD SCH (09:08)
[2021-02-17] MEDS: Linezolid 600 MG TABLET PO SCH ×2 (09:08→20:40)
[2021-02-17] MEDS: Ranolazine 500 MG TAB.ER.12H PO SCH ×2 (09:08→20:39)
[2021-02-17] MEDS: Aspirin Enteric Coated 81 MG Tablet PO SCH (09:08)
[2021-02-17] MEDS: Lactobacillus 1 EACH CAP.SPRINK PO SCH ×2 (09:08→20:39)
[2021-02-17] MEDS: Metoprolol XL (24 HR) Succ 25 MG TAB.ER.24H PO SCH (09:09)
[2021-02-17] MEDS ORDERED: Furosemide 40 MG/4 ML VIAL IVP ONE (10:11)
[2021-02-17] MEDS: Budesonide/Formoterol 160/4.5 1 PUFF INH IH SCH ×2 (10:37→21:19)
[2021-02-17] MEDS: levoFLOXacin 750 MG TABLET PO SCH (14:44)
[2021-02-17] MEDS ORDERED: *HR* LORazepam 2 MG/ML VIAL IVP ONE (16:50)
[2021-02-17] MEDS ORDERED: levETIRAcetam 1,000 MG in 0.9 % Sodium Chloride 100 ML IVPB ONE (16:55)
[2021-02-17 17:13] LABS: Basophils % 0.3 %; Eosinophils # 0.1 K/mcL (0.0-0.6); Eosinophils % 0.6 %; Hemoglobin 8.1 g/dL (12.9-16.9); Immature Granulocytes % 2.1 % (0-4); Lymphocytes # 4.8 K/mcL (0.6-4.6); Lymphocytes % 30.4 %; Mean Corpuscular HGB Conc 32.4 g/dL (31.6-35.5); Mean Corpuscular Hemoglobin 28.9 pg (28.0-33.3); Mean Corpuscular Volume 89.3 fL (83.0-100.0); Monocytes % 6.3 %; Neutrophils # 9.5 K/mcL (1.6-8.9); Platelet Count 180 K/mcL (140-400); Red Cell Distribution Width 16.4 % (11.5-14.5); Segmented Neutrophils % 60.3 %; White Blood Count 15.7 K/mcL (4.3-11.1)
[2021-02-17 17:25] LABS: Albumin 2.9 g/dL (3.5-5.7); Bilirubin,Total 0.6 mg/dL (0.3-1.0); Calcium 8.3 mg/dL (8.6-10.3); Globulin 2.8 g/dL (2.4-3.5); Magnesium 1.6 mg/dL (1.6-2.6); Total Protein 5.7 g/dL (6.4-8.9)
[2021-02-17 19:23] LABS: ABG Base Excess 4 mEq/L (-2 to 3); ABG HCO3 28 mEq/L (21-27); ABG Oxygen Saturation 95 % (95-98); ABG PCO2 42 mmHg (35-45); ABG PH 7.43 pH Units (7.32-7.45); ABG PO2 72 mmHg (85-104); ABG TCO2 30 mEq/L (20-26); Blood Gas Modality 5LPM
[2021-02-17] MEDS ORDERED: Albumin 25% 25gram/100mL 25 GM/100 ML IV.SOLN IVPB ONE (19:37)
[2021-02-17 20:31] VITALS: TEMP 98.7
[2021-02-17] MEDS ORDERED: Insulin DETEMIR 100 UNIT/ML X5UNITS SUBQ SCH (21:00)
[2021-02-17 21:08] VITALS: BP 111/71; PULSE 73; O2SAT 100
== END 2021-02-17 21:56 | disposition short-term general hospital (02) | DRG 853 ==
LOC: EMEROOARM 15:59 → 2NENU 15:59 → SUATTDRO 21:14 → ICNU 02-04 09:40 → 2ANU 02-05 15:44 → 2NNU 02-07 18:34 → 2ANU 02-12 13:37 → ICNU 02-17 20:36
PROVIDERS: ADMIT Internal Medicine; ATTEND Student in an Organized Health Care Education/Training Program
PROC: IRPERMA (2021-02-15 12:00)